=== PATIENT | female | born 1960 | race Caucasian/White ===

== ENCOUNTER 2016-12-20 08:13 | Outpatient (CLI) | payer OTHER ==
[2016-12-20 07:29] LABS: BILIRUBIN,URINE NEGATIVE (NEGATIVE); BLOOD, URINE NEGATIVE (NEGATIVE); CLARITY/URINE CLEAR (CLEAR); COLOR,URINE YELLOW (YELLOW); GLUCOSE,URINE NEGATIVE (NEGATIVE); KETONES,URINE NEGATIVE (NEGATIVE); LEUKOCYTE ESTERASE ,URINE NEGATIVE (NEGATIVE); NITRITE, URINE NEGATIVE (NEGATIVE); PH,URINE 5.5 (5.0-8.0); PROTEIN URINE NEGATIVE (NEGATIVE); UROBILINOGEN,URINE 0.2 (0.2-1.0)
[2016-12-20 07:31] LABS: BASOPHILS % (AUTO) 0.7 % (0.0-2.0); EOSINOPHILS # (AUTO) 0.4 K/uL (0.0-0.4); EOSINOPHILS % (AUTO) 5.3 % (0.0-4.0); HEMATOCRIT 40.4 % (36-48); HEMOGLOBIN 13.7 g/dL (12.0-16.0); LYMPHOCYTES # (AUTO) 1.7 K/uL (1.0-5.5); LYMPHOCYTES % (AUTO) 24.7 % (20.5-51.5); MEAN CORPUSCULAR HEMOGLOBIN 31 pg (27-31); MEAN CORPUSCULAR HGB CONC 34 % (32-36); MEAN CORPUSCULAR VOLUME 90 fL (79.0-98.0); MONOCYTES # (AUTO) 0.6 K/uL (0.0-1.0); MONOCYTES % (AUTO) 8.3 % (1.7-9.3); NEUTROPHILS # (AUTO) 4.3 K/uL (1.8-7.7); PLATELET COUNT (AUTO) 230 K/uL (130-430); RED BLOOD CELL COUNT(AUTO) 4.49 MIL/uL (4.2-6.2); RED CELL DISTRIBUTION WIDTH 14.5 % (9.0-15.0)
[2016-12-20 07:54] LABS: ALBUMIN 3.8 g/dL (3.4-4.8); BILIRUBIN,DIRECT 0.2 mg/dL (0.0-0.3); CREATININE 0.72 mg/dL (0.55-1.30); POTASSIUM 4.2 mmol/L (3.5-5.1); THYROID STIMULATING HORMONE 1.6 uIu/mL (0.34-4.82); TOTAL BILIRUBIN 0.3 mg/dL (0.0-1.0); TOTAL PROTEIN, SERUM 7.3 g/dL (6.4-8.3); URIC ACID 4.5 mg/dL (2.4-7.0)
[~2016-12-20 08:13] MED LIST: SERT25TA PO
[2016-12-20 08:43] LABS: IRON (SERUM) 80 mcg/dL (37-145); TOTAL IRON BIND. CAPACITY 406 ug/dL (250-450)
[2016-12-21 13:52] LABS: HEMOGLOBIN A1C 7.2 % (4.8-5.6)
[2016-12-24 12:07] LABS: VIT D,1, 25-DIHYDROXY 21.6 pg/mL (19.9-79.3)
== END 2016-12-20 19:21 | disposition home or self-care (01) ==
LOC: SLB 08:13
PROVIDERS: ATTEND Family Medicine
DX: Z00.00 Encounter for general adult medical examination without abnormal findings (principal)
CPT/HCPCS: 36415; 80053; 80061; 81003; 82248-TC; 82306; 82607; 83036; 83540-TC; 83550-TC; 84443-TC; 84550-TC; 85025

== ENCOUNTER 2016-12-31 06:28 | Outpatient (CLI) | payer OTHER | END 2016-12-31 21:29 | disposition home or self-care (01) | LOC: SUS 06:28 | PROVIDERS: ATTEND Family Medicine | DX: N28.1 Cyst of kidney, acquired (principal) | CPT/HCPCS: 76700-TC; 76830-TC; 76857 ==

== ENCOUNTER 2017-02-28 05:50 | Day surgery (SDC) | payer OTHER ==
[2017-02-26 15:35] LABS: BASOPHILS % (AUTO) 0.3 % (0.0-2.0); EOSINOPHILS # (AUTO) 0.4 K/uL (0.0-0.4); HEMATOCRIT 40.3 % (36-48); HEMOGLOBIN 13.5 g/dL (12.0-16.0); LYMPHOCYTES # (AUTO) 2.5 K/uL (1.0-5.5); LYMPHOCYTES % (AUTO) 33.8 % (20.5-51.5); MEAN CORPUSCULAR HEMOGLOBIN 30 pg (27-31); MEAN CORPUSCULAR HGB CONC 33 % (32-36); MEAN CORPUSCULAR VOLUME 91 fL (79.0-98.0); MONOCYTES # (AUTO) 0.6 K/uL (0.0-1.0); MONOCYTES % (AUTO) 8.4 % (1.7-9.3); NEUTROPHILS % (AUTO) 52.5 % (40.0-70.0); PLATELET COUNT (AUTO) 210 K/uL (130-430); RED BLOOD CELL COUNT(AUTO) 4.44 MIL/uL (4.2-6.2); RED CELL DISTRIBUTION WIDTH 13.4 % (9.0-15.0); WHITE BLOOD COUNT (AUTO) 7.5 K/uL (4.8-10.8)
[2017-02-26 16:41] LABS: BILIRUBIN,URINE NEGATIVE (NEGATIVE); BLOOD, URINE NEGATIVE (NEGATIVE); CLARITY/URINE CLEAR (CLEAR); COLOR,URINE YELLOW (YELLOW); GLUCOSE,URINE NEGATIVE (NEGATIVE); KETONES,URINE NEGATIVE (NEGATIVE); LEUKOCYTE ESTERASE ,URINE NEGATIVE (NEGATIVE); NITRITE, URINE NEGATIVE (NEGATIVE); PH,URINE 6.5 (5.0-8.0); PROTEIN URINE NEGATIVE (NEGATIVE); UROBILINOGEN,URINE 0.2 (0.2-1.0)
[~2017-02-28] VITALS: Ht 162.6 cm; Wt 89.8 kg
[2017-02-28] MEDS ORDERED: CEFAZOLIN 1 GM IVPB PREMIX 50 ML IV ONE ×2 (07:00→14:15)
[2017-02-28] MEDS ORDERED: POLYMYXIN 500,000/BACIT.10,000 UNITS in NS IRR 1 L IR ONE ×2 (07:41→10:39)
[2017-02-28] MEDS ORDERED: BUPIVACAINE /EPINEPHRINE/PF 0.5% 30 ML VIAL INJ ONE (09:15)
[2017-02-28] MEDS ORDERED: MIDAZOLAM HCL 5 MG/5 ML VIAL IVP ONE (09:15)
[2017-02-28] MEDS ORDERED: KETOROLAC TROMETHAMINE 30 MG VIAL IVP ONE (09:15)
[2017-02-28] MEDS ORDERED: SEVOFLURANE 15 MIN GAS INH ONE (09:15)
[2017-02-28] MEDS ORDERED: METHYLENE BLUE 1 ML AMPUL INJ ONE (09:15)
[2017-02-28] MEDS ORDERED: ROCURONIUM BROMIDE 10 MG/ML (ZEMURON) IV ONE (09:15)
[2017-02-28] MEDS ORDERED: LR 1,000 ML IV.SOLN IV ONE (09:15)
[2017-02-28] MEDS ORDERED: NS 1000 ML BAG IV ONE (09:15)
[2017-02-28] MEDS ORDERED: ONDANSETRON HCL 4 MG/2 ML VIAL IVP ONE ×2 (09:15→12:15)
[2017-02-28] MEDS ORDERED: fentaNYL CITRATE 250 MCG/5 ML AMP IV ONE (09:15)
[2017-02-28] MEDS ORDERED: LR 1,000 ML IV SCH (09:52)
[2017-02-28] MEDS ORDERED: MORPHINE 4 MG/ML INJ. SYRINGE IVP PRN ×2 (10:00)
[2017-02-28] MEDS ORDERED: METOCLOPRAMIDE HCL 10 MG/2 ML VIAL IVP PRN (10:00)
[2017-02-28] MEDS ORDERED: OXYCODONE/ACETAMINOPHEN 5-325 TABLET PO PRN ×2 (11:15)
[2017-02-28] MEDS ORDERED: HYDROcodone/ACETAMIN 5-325 MG TAB (NORCO/ VICODIN) PO PRN (11:15)
[2017-02-28] MEDS ORDERED: METOCLOPRAMIDE HCL 10 MG/2 ML VIAL ONE (11:40)
[2017-02-28] MEDS: MORPHINE 4 MG/ML INJ. SYRINGE IVP PRN ×2 (11:40→12:04)
[2017-02-28] MEDS ORDERED: MORPHINE 4 MG/ML INJ. SYRINGE ONE (11:41)
[2017-02-28] MEDS ORDERED: ONDANSETRON HCL 4 MG/2 ML VIAL ONE (12:08)
[2017-02-28] MEDS ORDERED: HYDROcodone/ACETAMIN 5-325 MG TAB (NORCO/ VICODIN) ONE (12:40)
[2017-02-28 12:48] VITALS: BP_SYST 96
== END 2017-02-28 15:50 | disposition home or self-care (01) ==
LOC: SMU 05:50 → SDS 05:50
PROVIDERS: ATTEND Specialist
DX: N39.3 Stress incontinence (female) (male) (principal); N81.10 Cystocele, unspecified; I10 Essential (primary) hypertension; N36.8 Other specified disorders of urethra; E11.9 Type 2 diabetes mellitus without complications; E78.00 Pure hypercholesterolemia, unspecified; Z79.84 Long term (current) use of oral hypoglycemic drugs; Z79.899 Other long term (current) drug therapy; K21.9 Gastro-esophageal reflux disease without esophagitis; M19.90 Unspecified osteoarthritis, unspecified site; F41.9 Anxiety disorder, unspecified; E66.9 Obesity, unspecified
CPT/HCPCS: 36415; 57240; 57288; 81003; 82962; 84702; 85025; 88302; 93005; C1771; J0690; J1885; J2250; J2270; J2405; J2765; J3010; J3490; J7030; J7120; Q9968; 88305

== ENCOUNTER 2017-07-03 05:46 | Outpatient (CLI) | payer OTHER ==
[2017-07-03 07:33] LABS: BILIRUBIN,URINE NEGATIVE (NEGATIVE); BLOOD, URINE NEGATIVE (NEGATIVE); CLARITY/URINE SL HAZY (CLEAR); COLOR,URINE YELLOW (YELLOW); GLUCOSE,URINE NEGATIVE (NEGATIVE); KETONES,URINE NEGATIVE (NEGATIVE); LEUKOCYTE ESTERASE ,URINE NEGATIVE (NEGATIVE); NITRITE, URINE NEGATIVE (NEGATIVE); PROTEIN URINE NEGATIVE (NEGATIVE); UROBILINOGEN,URINE 0.2 (0.2-1.0)
[2017-07-03 07:39] LABS: BASOPHILS % (AUTO) 0.4 % (0.0-2.0); EOSINOPHILS # (AUTO) 0.2 K/uL (0.0-0.4); EOSINOPHILS % (AUTO) 3.2 % (0.0-4.0); HEMATOCRIT 40.9 % (36-48); HEMOGLOBIN 13.6 g/dL (12.0-16.0); LYMPHOCYTES # (AUTO) 2.3 K/uL (1.0-5.5); MEAN CORPUSCULAR HEMOGLOBIN 29 pg (27-31); MEAN CORPUSCULAR HGB CONC 33 % (32-36); MEAN CORPUSCULAR VOLUME 87 fL (79.0-98.0); MONOCYTES # (AUTO) 0.6 K/uL (0.0-1.0); MONOCYTES % (AUTO) 9.2 % (1.7-9.3); NEUTROPHILS # (AUTO) 3.6 K/uL (1.8-7.7); NEUTROPHILS % (AUTO) 53.2 % (40.0-70.0); PLATELET COUNT (AUTO) 241 K/uL (130-430); RED BLOOD CELL COUNT(AUTO) 4.72 MIL/uL (4.2-6.2); RED CELL DISTRIBUTION WIDTH 15.7 % (9.0-15.0); WHITE BLOOD COUNT (AUTO) 6.7 K/uL (4.8-10.8)
[2017-07-03 08:01] LABS: ALBUMIN 3.6 g/dL (3.4-4.8); BILIRUBIN,DIRECT 0.1 mg/dL (0.0-0.3); CALCIUM 9.9 mg/dL (8.4-11.0); CREATININE 0.63 mg/dL (0.55-1.30); FREE T4 (FREE THYROXINE) 0.7 ng/dL (0.6-1.6); POTASSIUM 4.1 mmol/L (3.5-5.1); THYROID STIMULATING HORMONE 2.2 uIu/mL (0.34-4.82); TOTAL BILIRUBIN 0.3 mg/dL (0.0-1.0); URIC ACID 4.8 mg/dL (2.4-7.0)
[2017-07-03 08:06] LABS: TOTAL IRON BIND. CAPACITY 407 ug/dL (250-450)
[2017-07-04 15:52] LABS: HEMOGLOBIN A1C 6.9 % (4.8-5.6)
[2017-07-04 15:54] LABS: CREATININE, URINE 134.4 mg/dL; MICROALBUMIN URINE RANDOM 4.6 ug/ml (NOT ESTABLISHED); MICROALBUMIN/CREAT RATIO, UR 3.4 MG/G CRE (0.0-30.0)
== END 2017-07-03 20:47 | disposition home or self-care (01) ==
LOC: SLB 05:46
PROVIDERS: ATTEND Family Medicine
DX: I10 Essential (primary) hypertension (principal); E11.9 Type 2 diabetes mellitus without complications; E78.5 Hyperlipidemia, unspecified
CPT/HCPCS: 36415; 80053; 80061; 81003; 82043; 82248-TC; 82550-TC; 82570; 82607; 83036; 83540-TC; 83550-TC; 84439; 84443-TC; 84479; 84550-TC; 85025

== ENCOUNTER 2018-01-06 07:10 | Outpatient (CLI) | payer OTHER ==
[2018-01-06 07:48] LABS: BASOPHILS # (AUTO) 0.1 K/uL (0.0-0.2); EOSINOPHILS # (AUTO) 0.4 K/uL (0.0-0.4); EOSINOPHILS % (AUTO) 5.1 % (0.0-4.0); HEMATOCRIT 41.3 % (36-48); HEMOGLOBIN 13.6 g/dL (12.0-16.0); LYMPHOCYTES # (AUTO) 2.3 K/uL (1.0-5.5); MEAN CORPUSCULAR HEMOGLOBIN 30 pg (27-31); MEAN CORPUSCULAR HGB CONC 33 % (32-36); MEAN CORPUSCULAR VOLUME 89 fL (79.0-98.0); MONOCYTES # (AUTO) 0.7 K/uL (0.0-1.0); MONOCYTES % (AUTO) 9.5 % (1.7-9.3); NEUTROPHILS # (AUTO) 3.7 K/uL (1.8-7.7); NEUTROPHILS % (AUTO) 52.4 % (40.0-70.0); PLATELET COUNT (AUTO) 232 K/uL (130-430); RED BLOOD CELL COUNT(AUTO) 4.61 MIL/uL (4.2-6.2); WHITE BLOOD COUNT (AUTO) 7.2 K/uL (4.8-10.8)
[2018-01-06 08:42] LABS: ALBUMIN 3.6 g/dL (3.4-4.8); BILIRUBIN,DIRECT 0.1 mg/dL (0.0-0.3); CALCIUM 9.6 mg/dL (8.4-11.0); CREATININE 0.69 mg/dL (0.55-1.30); POTASSIUM 4.1 mmol/L (3.5-5.1); THYROID STIMULATING HORMONE 2.24 uIu/mL (0.34-4.82); TOTAL BILIRUBIN 0.3 mg/dL (0.0-1.0); URIC ACID 4.9 mg/dL (2.4-7.0)
[2018-01-06 09:39] LABS: BILIRUBIN,URINE NEGATIVE (NEGATIVE); BLOOD, URINE NEGATIVE (NEGATIVE); CLARITY/URINE CLEAR (CLEAR); COLOR,URINE YELLOW (YELLOW); GLUCOSE,URINE NEGATIVE (NEGATIVE); KETONES,URINE NEGATIVE (NEGATIVE); LEUKOCYTE ESTERASE ,URINE NEGATIVE (NEGATIVE); NITRITE, URINE NEGATIVE (NEGATIVE); PROTEIN URINE NEGATIVE (NEGATIVE); UROBILINOGEN,URINE 0.2 (0.2-1.0)
[2018-01-06 10:12] LABS: ERYTHROCYTE SEDIMENTATION RATE 12 MM/HR (0-20)
[2018-01-07 08:08] LABS: RA LATEX TURBID <10.0 IU/mL (0.0-13.9)
[2018-01-07 10:09] LABS: HEMOGLOBIN A1C 7.9 % (4.8-5.6)
== END 2018-01-06 20:41 | disposition home or self-care (01) ==
LOC: SLB 07:10
PROVIDERS: ATTEND Family Medicine
DX: E11.9 Type 2 diabetes mellitus without complications (principal); E78.5 Hyperlipidemia, unspecified; I10 Essential (primary) hypertension
CPT/HCPCS: 36415; 80053; 80061; 80076; 81003; 82607; 83036; 83540-TC; 83550-TC; 84443-TC; 84550-TC; 85025; 85651-TC; 86431

== ENCOUNTER 2018-02-28 06:20 | Outpatient (CLI) | payer OTHER ==
[2018-02-28 08:08] LABS: BILIRUBIN,URINE NEGATIVE (NEGATIVE); BLOOD, URINE NEGATIVE (NEGATIVE); CLARITY/URINE SL HAZY (CLEAR); COLOR,URINE YELLOW (YELLOW); GLUCOSE,URINE NEGATIVE (NEGATIVE); KETONES,URINE NEGATIVE (NEGATIVE); LEUKOCYTE ESTERASE ,URINE NEGATIVE (NEGATIVE); NITRITE, URINE NEGATIVE (NEGATIVE); PH,URINE 5.5 (5.0-8.0); PROTEIN URINE NEGATIVE (NEGATIVE); UROBILINOGEN,URINE 0.2 (0.2-1.0)
[2018-02-28 08:38] LABS: FREE T4 (FREE THYROXINE) 0.9 ng/dl (0.8-1.5); THYROID STIMULATING HORMONE 2.07 uIu/mL (0.36-3.74)
[2018-03-01 18:29] LABS: HEMOGLOBIN A1C 8.6 % (4.8-5.6)
== END 2018-02-28 21:49 | disposition home or self-care (01) ==
LOC: SLB 06:20
PROVIDERS: ATTEND Family Medicine
DX: R53.82 Chronic fatigue, unspecified (principal); I10 Essential (primary) hypertension; E11.9 Type 2 diabetes mellitus without complications; J45.909 Unspecified asthma, uncomplicated; E78.5 Hyperlipidemia, unspecified
CPT/HCPCS: 36415; 81003; 83036; 84439; 84443-TC; 84479

== ENCOUNTER 2018-10-30 06:45 | Outpatient (CLI) | payer OTHER ==
[2018-10-30 07:42] LABS: BASOPHILS % (AUTO) 0.7 % (0.0-2.0); EOSINOPHILS # (AUTO) 0.2 K/uL (0.0-0.4); EOSINOPHILS % (AUTO) 2.9 % (0.0-4.0); HEMATOCRIT 41.9 % (36-48); HEMOGLOBIN 13.9 g/dL (12.0-16.0); LYMPHOCYTES # (AUTO) 1.8 K/uL (1.0-5.5); LYMPHOCYTES % (AUTO) 30.4 % (20.5-51.5); MEAN CORPUSCULAR HEMOGLOBIN 30 pg (27-31); MEAN CORPUSCULAR HGB CONC 33 % (32-36); MEAN CORPUSCULAR VOLUME 91 fL (79.0-98.0); MONOCYTES # (AUTO) 0.6 K/uL (0.0-1.0); MONOCYTES % (AUTO) 9.4 % (1.7-9.3); NEUTROPHILS # (AUTO) 3.5 K/uL (1.8-7.7); NEUTROPHILS % (AUTO) 56.6 % (40.0-70.0); PLATELET COUNT (AUTO) 188 K/uL (130-430); RED BLOOD CELL COUNT(AUTO) 4.59 MIL/uL (4.2-6.2); WHITE BLOOD COUNT (AUTO) 6.1 K/uL (4.8-10.8)
[2018-10-30 08:06] LABS: TOTAL IRON BIND. CAPACITY 382 ug/dL (250-450)
[2018-10-30 08:09] LABS: ALBUMIN 3.3 g/dL (3.4-4.8); BILIRUBIN,DIRECT 0.1 mg/dL (0.0-0.3); CALCIUM 8.6 mg/dL (8.4-11.0); CREATININE 0.59 mg/dL (0.55-1.30); FREE T4 (FREE THYROXINE) 0.5 ng/dL (0.6-1.6); THYROID STIMULATING HORMONE 1.94 uIu/mL (0.34-4.82); TOTAL BILIRUBIN 0.3 mg/dL (0.0-1.0); URIC ACID 3.4 mg/dL (2.4-7.0)
[2018-10-30 08:15] LABS: BILIRUBIN,URINE NEGATIVE (NEGATIVE); BLOOD, URINE NEGATIVE (NEGATIVE); CLARITY/URINE SL HAZY (CLEAR); COLOR,URINE YELLOW (YELLOW); GLUCOSE,URINE 2+ (NEGATIVE); KETONES,URINE NEGATIVE (NEGATIVE); LEUKOCYTE ESTERASE ,URINE TRACE (NEGATIVE); NITRITE, URINE POSITIVE (NEGATIVE); PROTEIN URINE NEGATIVE (NEGATIVE); UROBILINOGEN,URINE 0.2 (0.2-1.0)
[2018-10-30 08:35] LABS: BACTERIA,URINE MANY /HPF (None Seen); MUCUS,URINE None Seen /LPF (None Seen); YEAST,URINE None Seen /HPF (None Seen)
[2018-10-30 09:23] LABS: ERYTHROCYTE SEDIMENTATION RATE 8 MM/HR (0-20)
[2018-10-31 08:11] LABS: RA LATEX TURBID <10.0 IU/mL (0.0-13.9)
[2018-10-31 14:50] LABS: HEMOGLOBIN A1C 9.6 % (4.8-5.6); T3 UPTAKE 23 % (24-39)
[2018-10-31 20:06] LABS: ANTI NUCLEAR AB WITH REFLEX Negative (Negative)
== END 2018-10-30 21:11 | disposition home or self-care (01) ==
LOC: SLB 06:45
PROVIDERS: ATTEND Family Medicine
DX: Z00.01 Encounter for general adult medical examination with abnormal findings (principal); E11.9 Type 2 diabetes mellitus without complications; E03.9 Hypothyroidism, unspecified; E78.5 Hyperlipidemia, unspecified
CPT/HCPCS: 36415; 80053; 80061; 81000-TC; 82248-TC; 82550-TC; 82607; 83036; 83540-TC; 83550-TC; 84439; 84443-TC; 84479; 84550-TC; 85025; 85651-TC; 86038; 86431

== ENCOUNTER 2019-03-17 09:39 | Outpatient (CLI) | payer OTHER | END 2019-03-17 20:37 | disposition home or self-care (01) | LOC: SRD 09:39 | PROVIDERS: ATTEND Family Medicine | DX: Z12.31 Encounter for screening mammogram for malignant neoplasm of breast (principal) | CPT/HCPCS: 77067 ==

== ENCOUNTER 2019-06-15 14:05 | Emergency (ER) | payer OTHER ==
[~2019-06-15] VITALS: Ht 162.6 cm; Wt 90.7 kg
[2019-06-15 14:16] VITALS: BP_SYST 124
--- NOTE | 2019-06-15 14:23 | NUR ---
Patient to ER bed 5 to gown for evaluation. Side rails up. Report given to Katina ALVAREZ.
--- NOTE | 2019-06-15 14:25 | NUR ---
Pt brought by self, A&Ox4, pt presents to ER with L calf pain and swelling x 3 days , denies trauma, denies fever, skin pink and warm, cap refill <3, VSS.
--- NOTE | 2019-06-15 14:30 | NUR ---
Dr Muñoz at bedside examining patient
--- NOTE | 2019-06-15 14:55 | NUR ---
Pt off the unit for US
[2019-06-15] MEDS ORDERED: KETOROLAC TROMETHAMINE 30 MG VIAL IM ONE (15:00)
--- NOTE | 2019-06-15 15:00 | NUR ---
Report from Katina RN, pt in Radiology for US
[2019-06-15 16:03] VITALS: BP_SYST 124
--- NOTE | 2019-06-15 16:03 | NUR ---
Patient given written and verbal discharge instructions and verbalizes understanding. ER MD discussed with patient the results and treatment provided. Patient in stable condition. ID arm band removed. Rx of Valium & Naroxyn given. Patient educated on pain management and to follow up with PMD. Pain Scale 0/10. Opportunity for questions provided and answered. Medication side effect fact sheet provided.
== END 2019-06-15 16:03 | disposition home or self-care (01) ==
LOC: SED 14:05
DX: S86.912A Strain of unspecified muscle(s) and tendon(s) at lower leg level, left leg, initial encounter (principal); E11.9 Type 2 diabetes mellitus without complications; M19.90 Unspecified osteoarthritis, unspecified site; X50.9XXA Other and unspecified overexertion or strenuous movements or postures, initial encounter; Y93.89 Activity, other specified; Y92.89 Other specified places as the place of occurrence of the external cause; Y99.8 Other external cause status
CPT/HCPCS: 73590; 93971; 96372; 99284; J1885

== ENCOUNTER 2019-07-11 08:14 | Emergency (ER) | payer OTHER ==
[~2019-07-11] VITALS: Ht 167.6 cm; Wt 81.6 kg
[2019-07-11 08:14] VITALS: BP_SYST 116
--- NOTE | 2019-07-11 08:14 | NUR ---
Placed in room 7 . Placed on media monitor, blood pressure machine and pulse oximeter. To gown for exam. Side rails up. Report given to KIM Cobb.
--- NOTE | 2019-07-11 08:16 | NUR ---
Patient arrived via POV, AAOx4, and ambulatory with steady gait. Patient c/c of chest pain. Onset was during the night and began on right side, moving to left sided and radiating upward to left side of neck. Patient states she has not had chest pain like this before and began to get concerned. Patient states pain is worse with deep inspiration and pain is worse with movement. Patient states recent productive cough, and pain with inspiration. Patient is a smoker, and states she has been having more frequent coughing. Will continue to follow up and monitor.
--- NOTE | 2019-07-11 08:25 | NUR ---
ER Dr. Serrano at bedside examining patient.
[2019-07-11 08:45] LABS: BASOPHILS # (AUTO) 0.1 K/uL (0.0-0.2); BASOPHILS % (AUTO) 0.6 % (0.0-2.0); EOSINOPHILS # (AUTO) 0.2 K/uL (0.0-0.4); EOSINOPHILS % (AUTO) 1.9 % (0.0-4.0); HEMATOCRIT 42.1 % (36-48); HEMOGLOBIN 14.5 g/dL (12.0-16.0); LYMPHOCYTES # (AUTO) 2.3 K/uL (1.0-5.5); LYMPHOCYTES % (AUTO) 24.3 % (20.5-51.5); MEAN CORPUSCULAR HEMOGLOBIN 32 pg (27-31); MEAN CORPUSCULAR HGB CONC 35 % (32-36); MEAN CORPUSCULAR VOLUME 93 fL (79.0-98.0); MONOCYTES # (AUTO) 0.9 K/uL (0.0-1.0); MONOCYTES % (AUTO) 9.5 % (1.7-9.3); NEUTROPHILS # (AUTO) 6.1 K/uL (1.8-7.7); NEUTROPHILS % (AUTO) 63.7 % (40.0-70.0); PLATELET COUNT (AUTO) 182 K/uL (130-430); RED BLOOD CELL COUNT(AUTO) 4.54 MIL/uL (4.2-6.2); RED CELL DISTRIBUTION WIDTH 14.1 % (9.0-15.0); WHITE BLOOD COUNT (AUTO) 9.5 K/uL (4.8-10.8)
[2019-07-11] MEDS ORDERED: ASPIRIN 81 MG TAB.CHEW PO ONE (08:45)
[2019-07-11 08:58] LABS: CALCIUM 8.9 mg/dL (8.4-11.0); CREATININE 0.6 mg/dL (0.55-1.30); POTASSIUM 3.9 mmol/L (3.5-5.1)
[2019-07-11 09:05] LABS: ALBUMIN 3.7 g/dL (3.4-4.8); TOTAL BILIRUBIN 0.4 mg/dL (0.0-1.0)
[2019-07-11 10:00] VITALS: BP_SYST 116
--- NOTE | 2019-07-11 10:00 | NUR ---
Patient given written and verbal discharge instructions and verbalizes understanding. ER MD discussed with patient the results and treatment provided. Patient in stable condition. ID arm band removed. IV catheter removed intact and dressing applied, no active bleeding. Rx of promethazine, motrin, prednisone given. Patient educated on pain management and to follow up with PMD. Pain Scale 0/10. Opportunity for questions provided and answered. Medication side effect fact sheet provided.
== END 2019-07-11 10:00 | disposition home or self-care (01) ==
LOC: SED 08:14
DX: J40 Bronchitis, not specified as acute or chronic (principal); R07.89 Other chest pain; E11.9 Type 2 diabetes mellitus without complications; M19.90 Unspecified osteoarthritis, unspecified site
CPT/HCPCS: 36415; 71045; 80053; 82550-TC; 83880; 84484; 85025; 85379; 93005; 99284

== ENCOUNTER 2019-09-30 10:01 | Outpatient (CLI) | payer OTHER | END 2019-10-01 13:41 | disposition home or self-care (01) | LOC: SRD 10:01 | PROVIDERS: ATTEND Family Medicine | DX: N63.0 Unspecified lump in unspecified breast (principal) | CPT/HCPCS: 77065 ==

== ENCOUNTER 2019-11-09 17:37 | Inpatient (IN) | payer OTHER ==
[~2019-11-09] VITALS: Ht 162.6 cm; Wt 87.5 kg
[2019-11-09 17:38] VITALS: BP_SYST 138
--- NOTE | 2019-11-09 17:41 | NUR ---
Patient triaged and placed in waiting room. VSS and patient appears in no acute distress at this time. Accompanied by daughter, awaiting available bed, and MD notified of need for MSE.
--- NOTE | 2019-11-09 18:09 | NUR ---
Patient to ER bed 08 to gown for evaluation. Side rails up. Report given to KIM Mathis
--- NOTE | 2019-11-09 18:10 | NUR ---
Patient is awake, alert, and oriented x4. Patient is complaining of SOB, chest and lower back pain that started after she got home. She denies nausea and vomiting.
[2019-11-09] MEDS ORDERED: NS 500 ML IV ONE (18:30)
[2019-11-09 18:59] LABS: BASOPHILS # (AUTO) 0.1 K/uL (0.0-0.2); BASOPHILS % (AUTO) 0.5 % (0.0-2.0); EOSINOPHILS % (AUTO) 0.3 % (0.0-4.0); HEMATOCRIT 44.3 % (36-48); HEMOGLOBIN 14.6 g/dL (12.0-16.0); LYMPHOCYTES # (AUTO) 1.1 K/uL (1.0-5.5); LYMPHOCYTES % (AUTO) 8.8 % (20.5-51.5); MEAN CORPUSCULAR HEMOGLOBIN 31 pg (27-31); MEAN CORPUSCULAR HGB CONC 33 % (32-36); MEAN CORPUSCULAR VOLUME 93 fL (79.0-98.0); MONOCYTES # (AUTO) 1.4 K/uL (0.0-1.0); MONOCYTES % (AUTO) 10.6 % (1.7-9.3); NEUTROPHILS # (AUTO) 10.3 K/uL (1.8-7.7); NEUTROPHILS % (AUTO) 79.8 % (40.0-70.0); PLATELET COUNT (AUTO) 191 K/uL (130-430); RED BLOOD CELL COUNT(AUTO) 4.75 MIL/uL (4.2-6.2); RED CELL DISTRIBUTION WIDTH 13.9 % (9.0-15.0); WHITE BLOOD COUNT (AUTO) 12.9 K/uL (4.8-10.8)
[2019-11-09 19:12] LABS: CALCIUM 8.8 mg/dL (8.4-11.0); CREATININE 0.66 mg/dL (0.55-1.30); POTASSIUM 3.9 mmol/L (3.5-5.1)
[2019-11-09 19:18] LABS: ALBUMIN 3.9 g/dL (3.4-4.8); TOTAL BILIRUBIN 0.5 mg/dL (0.0-1.0)
--- NOTE | 2019-11-09 19:20 | NUR ---
ER Dr. Dobbs at bedside examining patient.
[2019-11-09 19:21] LABS: PROTHROMBIN TIME 9.9 SECS (9.5-12.5)
[2019-11-09] MEDS ORDERED: KETOROLAC TROMETHAMINE 30 MG VIAL IVP ONE (19:30)
--- NOTE | 2019-11-09 19:39 | NUR ---
Medication was given, pt tolerated well. No adverse reaction, will continue to monitor.
--- NOTE | 2019-11-09 20:15 | NUR ---
Patient resting comfortably in bed. No acute distress, will continue to monitor.
--- NOTE | 2019-11-09 20:55 | NUR ---
Verbal orders received from Dr. Dobbs to administer Aspirin 162mg PO. Medication was administered, pt tolerated well.
[2019-11-09] MEDS ORDERED: ASPIRIN 81 MG TAB.CHEW ONE (21:10)
--- NOTE | 2019-11-09 21:10 | NUR ---
[place] grewal in ED - 11/09/19 at 2151 by [email or web address] Verbal orders received from Dr. Dobbs to administer Aspirin 162mg PO. Medication was administered, pt tolerated well.
--- NOTE | 2019-11-09 22:26 | NUR ---
Patient unable to give medication list. Per patient, she will ask her daughter to send her a text of the list because daughter went home.
[2019-11-09 22:33] LABS: BILIRUBIN,URINE NEGATIVE (NEGATIVE); BLOOD, URINE NEGATIVE (NEGATIVE); CLARITY/URINE CLEAR (CLEAR); COLOR,URINE YELLOW (YELLOW); GLUCOSE,URINE 3+ (NEGATIVE); KETONES,URINE 1+ (NEGATIVE); LEUKOCYTE ESTERASE ,URINE NEGATIVE (NEGATIVE); NITRITE, URINE NEGATIVE (NEGATIVE); PROTEIN URINE NEGATIVE (NEGATIVE); UROBILINOGEN,URINE 0.2 (0.2-1.0)
--- NOTE | 2019-11-09 23:02 | NUR ---
Patient will be admitted to care of Dr. Garza. Admitted to Telemetry unit. Will go to room 117 B. Belongings list completed. Complete and up to date summary report printed. SBAR report to be given at bedside with opportunity for questions.
--- NOTE | 2019-11-09 23:10 | NUR ---
ADMISSION: The patient, PATTI GREGORY, 59 y/o, F admitted by RUT BOTELLO MD, WITH THE DIAGNOSIS OF CHEST PAIN, was given written information regarding hospital policies, unit procedures and contact persons. .
[2019-11-09 23:24] VITALS: BP_SYST 108
[2019-11-10] VITALS: BP_SYST 108
--- NOTE | 2019-11-10 00:31 | NUR ---
CONSULT: CONSULT CALLED FOR DR. SHEN I SPOKE WITH DANOBIA LITERATURE PROFESSOR #[id number] REASON FOR CONSULT: CHEST PAIN REQUESTING CONSULT: DR. BOTELLO ACCOUNT INSTALLATION SPECIALIST PHONE NUMBER: [phone]
[2019-11-10] MEDS: MORPHINE 2 MG/ML INJ. SYRINGE IVP PRN ×5 (01:22→21:39)
--- NOTE | 2019-11-10 01:22 | NUR ---
PAIN/VOIDED PATIENT VERBALIZED 8/10 CHEST PAIN. PRN PAIN MEDICATION GIVEN AT THIS TIME. NO SIGNS OF RESPIRATORY DISTRESS NOTED. BREATHING EVEN AND UNLABORED. PATIENT ASSISTED TO RESTROOM, AND SAFELY BACK TO BED. SAFETY PRECAUTIONS IN PLACE. REFUSED BED ALARM AT THIS TIME, PATIENT EDUCATED ON PURPOSE AND BENEFITS OF BED ALARM, PATIENT STILL REFUSED. WILL CONTINUE TO MONITOR AND REASSESS PATIENT
--- NOTE | 2019-11-10 02:12 | NUR ---
RN ROUNDS PATIENT ASLEEP AT THIS TIME. NO SIGNS OF RESPIRATORY DISTRESS AND DISCOMFORT NOTED. BREATHING EVEN AND UNLABORED. SAFETY PRECAUTIONS IN PLACE. WILL CONTINUE TO MONITOR PATIENT.
--- NOTE | 2019-11-10 04:35 | NUR ---
RN ROUNDS/VOIDED PATIENT ASSISTED TO BATHROOM AND SAFELY BACK TO BED. NO SIGNS OF RESPIRATORY DISTRESS AND DISCOMFORT NOTED. SAFETY PRECAUTIONS IN PLACE. WILL CONTINUE TO MONITOR.
[2019-11-10] MEDS: INSULIN REGULAR, HUMAN 100 UNITS/ML, 10 ML VIAL (humuLIN R) SUBCUT PRN ×4 (06:17→21:41)
--- NOTE | 2019-11-10 06:51 | NUR ---
CLOSING NOTES/BS 231 PATIENT AWAKE AT THIS TIME. NO SIGNS OF RESPIRATORY DISTRESS AND DISCOMFORT NOTED. BREATHING EVEN AND UNLABORED. HOB RAISED. BS CHECKED 231, 4 UNITS OF REGULAR INSULIN GIVEN. IV SITE, PATENCY NOTED. CALL LIGHT WITHIN REACH. BED LOCKED AND IN LOWEST POSITION. SAFETY PRECAUTIONS IN PLACE. ALL NEEDS MET THROUGHOUT THE SHIFT. WILL CONTINUE TO MONITOR UNTIL ENDORSE TO ONCOMING SHIFT NURSE FOR CONTINUITY OF CARE.
--- NOTE | 2019-11-10 07:15 | NUR ---
OPENING NOTES PT AWAKE, ALERT, AND ORIENTED. NONLABORED BREATHING NOTED ON ROOM AIR. NO ACUTE DISTRESS NOTED. IV LINE INTACT AND PATENT, NO SIGNS OF INFILTRATION NOTED. PT DENIES PAIN AT THIS TIME. BED LOCKED AND IN LOWEST POSITION. HOB ELEVATED. ALL NEEDS MET. CALL LIGHT IN REACH. FALL AND ASPIRATION PRECAUTIONS IN PLACE. CONTINUE TO MONITOR.
[2019-11-10 08:00] VITALS: BP_SYST 121
[2019-11-10] MEDS ORDERED: SERTRALINE HCL 50 MG TABLET PO SCH (09:15)
[2019-11-10] MEDS ORDERED: ATOR20TA64 PO (09:21)
[2019-11-10] MEDS ORDERED: PANT20TA2 PO (09:21)
[2019-11-10] MEDS ORDERED: SERT100T PO (09:21)
[2019-11-10] MEDS ORDERED: LISI10TA5 PO (09:21)
[2019-11-10] MEDS: ASPIRIN 325 MG TABLET PO SCH (09:26)
--- NOTE | 2019-11-10 09:26 | NUR ---
ROUTINE MEDS ADMINISTERED ORDERED PER MD, EDUCATION GIVEN, TOLERATED WELL. NO ACUTE DISTRESS NOTED. ALL NEEDS MET. CALL LIGHT IN REACH. CONTINUE TO MONITOR.
[2019-11-10] MEDS ORDERED: SERTRALINE HCL 50 MG TABLET PO ONE (09:30)
[2019-11-10] MEDS ORDERED: PANTOPRAZOLE SODIUM 40 MG TAB PO ONE ×2 (09:30→11:15)
[2019-11-10 10:09] LABS: THYROID STIMULATING HORMONE 2.17 uIu/mL (0.36-3.74)
[2019-11-10] MEDS: metFORMIN HCL 500 MG TABLET PO SCH ×2 (11:14→16:58)
--- NOTE | 2019-11-10 11:14 | NUR ---
ROUTINE MEDS ROUTINE MEDS ADMINISTERED ORDERED PER MD, EDUCATION GIVEN, TOLERATED WELL. NO ACUTE DISTRESS NOTED. ALL NEEDS MET. CALL LIGHT IN REACH. CONTINUE TO MONITOR.
[2019-11-10] MEDS ORDERED: metFORMIN HCL 500 MG TABLET PO ONE (11:15)
[2019-11-10] MEDS ORDERED: LISINOPRIL 10 MG TABLET (PRINIVIL) PO ONE (11:15)
[2019-11-10] MEDS: LISINOPRIL 10 MG TABLET (PRINIVIL) PO SCH (11:15)
[2019-11-10 12:00] VITALS: BP_SYST 115
[2019-11-10] MEDS ORDERED: IOHEXOL 350 mgI/mL, 150 ML INFUS..BTL IV ONE (12:00)
--- NOTE | 2019-11-10 12:49 | NUR ---
CONSENT FOR CT ANGIOGRAM CONSENT FOR CT ANGIOGRAM SIGNED BY PATIENT. 20 G IV INSERTED FOR PROCEDURE ON RIGHT FOREARM, IV LINE INTACT AND PATENT, NO SIGNS OF INFILTRATION NOTED. ALL NEEDS MET CALL LIGHT IN REACH.
--- NOTE | 2019-11-10 13:15 | NUR ---
OFF THE FLOOR. PT TAKEN OFF FLOOR FOR CT ANGIOGRAM.
--- NOTE | 2019-11-10 13:46 | NUR ---
PT BACK ON FLOOR. PT STABLE. NO ACUTE DISTRESS NOTED. ALL NEEDS MET. CALL LIGHT IN REACH. CONTINUE TO MONITOR.
[2019-11-10 14:00] VITALS: BP_SYST 113
--- NOTE | 2019-11-10 15:00 | NUR ---
ROUNDS PT RESTING. CHEST RISE AND FALL NOTED. NONLABORED BREATHING NOTED ON ROOM AIR. NO ACUTE DISTRESS NOTED. ALL NEEDS MET. CALL LIGHT IN REACH. CONTINUE TO MONITOR.
[2019-11-10 16:00] VITALS: BP_SYST 114
--- NOTE | 2019-11-10 16:58 | NUR ---
ACCUCHECK DONE. EDUCATION GIVEN, TOLERATED WELL. RESULT 222MG/DL. INSULIN COVERAGE ADMINISTERED ORDERED PER MD, EDUCATION GIVEN, TOLERATED WELL. ALL NEEDS MET. CALL LIGHT IN REACH. CONTINUE TO MONITOR.
--- NOTE | 2019-11-10 18:45 | NUR ---
CLOSING NOTES PT AWAKE, ALERT, AND ORIENTED. PT DENIES PAIN AT THIS TIME. IV LINE INTACT AND PATENT, NO SIGNS OF INFILTRATION NOTED. NO ACUTE DISTRESS NOTED. BED LOCKED AND IN LOWEST POSITION. ALL NEEDS MET. CALL LIGHT IN REACH. FALL AND ASPIRATION PRECAUTIONS IN PLACE. WILL ENDORSE TO NOC NURSE.
--- NOTE | 2019-11-10 19:10 | NUR ---
OPENING NOTES PATIENT AWAKE A0X4. NO SIGNS OF RESPIRATORY DISTRESS AND DISCOMFORT NOTED. DENIES PAIN AND DISCOMFORT AT THIS TIME. IV SITE, PATENCY NOTED. CALL LIGHT WITH IN REACH. BED LOCKED AND IN LOWEST POSITION. REFUSED BED ALARM, PATIENT RE EDUCATED ON PURPOSE AND BENEFITS OF BED ALARM, PATIENT STILL REFUSED. OTHER SAFETY PRECAUTIONS IN PLACE. WILL CONTINUE TO MONITOR PATIENT
[2019-11-10 20:00] VITALS: BP_SYST 110
--- NOTE | 2019-11-10 21:38 | NUR ---
MED PASS/ BS CHECKED 220 MEDICATIONS GIVEN AT THIS TIME, BS CHECKED 4UNITS OF REGULAR INSULIN GIVEN, PATIENT TOLERATED WELL. PATIENT VERBALIZED 8/10 CHEST PAIN. PRN PAIN MEDICATION GIVEN AT THIS TIME, WILL RE ASSESS. PATIENT HAS NO SIGNS OF RESPIRATORY DISTRESS NOTED. SAFETY PRECAUTIONS IN PLACE. WILL CONTINUE TO MONITOR
[2019-11-11] VITALS (11 sets, daily range): BP systolic 84–125
[2019-11-11] MEDS: MORPHINE 2 MG/ML INJ. SYRINGE IVP PRN ×2 (06:21→10:54)
[2019-11-11] MEDS: INSULIN REGULAR, HUMAN 100 UNITS/ML, 10 ML VIAL (humuLIN R) SUBCUT PRN ×2 (06:30→11:45)
--- NOTE | 2019-11-11 06:45 | NUR ---
CLOSING NOTES/BS 196 PATIENT AWAKE AT THIS TIME. NO SIGNS OF RESPIRATORY DISTRESS AND DISCOMFORT NOTED. BREATHING EVEN AND UNLABORED. HOB RAISED. BS CHECKED 196, 2 UNITS OF REGULAR INSULIN GIVEN. IV SITE, PATENCY NOTED. CALL LIGHT WITHIN REACH. BED LOCKED AND IN LOWEST POSITION. SAFETY PRECAUTIONS IN PLACE. NEEDS ATTENDED. ALL NEEDS MET THROUGHOUT THE SHIFT. WILL CONTINUE TO MONITOR UNTIL ENDORSE TO ONCOMING SHIFT NURSE FOR CONTINUITY OF CARE.
--- NOTE | 2019-11-11 07:05 | NUR ---
OPENING NOTES PATIENT AWAKE AND ALERT AND ORIENTED. NO SIGNS OF RESPIRATORY DISTRESS NOTED. PT DENIES PAIN AT THIS TIME. IV SITE INTACT AND PATENT, NO SIGNS OF INFILTRATION NOTED. NO ACUTE DISTRESS NOTED. ALL NEEDS MET. CALL LIGHT IN REACH. FALL AND ASPIRATION PRECAUTIONS IN PLACE. CONTINUE TO MONITOR.
--- NOTE | 2019-11-11 07:10 | NUR ---
CRITICAL LAB RECEIVED CRITICAL LAB OF TROPONIN 0.948 AND VERBALIZED PT'S INCREASED HEART RATE AND PAIN. PAGED DR. BOTELLO AND DR. SHEN, RECEIVED ORDERS. VERIFIED AND CARRIED OUT.
[2019-11-11] MEDS: metFORMIN HCL 500 MG TABLET PO SCH (08:00)
[2019-11-11] MEDS ORDERED: METOPROLOL TARTRATE 25 MG TABLET PO ONE (08:00)
[2019-11-11] MEDS ORDERED: ENOXAPARIN SODIUM 100 MG/ML SYRINGE SUBCUT ONE (08:00)
[2019-11-11] MEDS: ASPIRIN 325 MG TABLET PO SCH (08:06)
[2019-11-11] MEDS: LISINOPRIL 10 MG TABLET (PRINIVIL) PO SCH (08:06)
[2019-11-11] MEDS ORDERED: PANTOPRAZOLE SODIUM 40 MG TAB PO SCH (09:00)
[2019-11-11] MEDS ORDERED: SERTRALINE HCL 50 MG TABLET PO SCH (09:00)
[2019-11-11] MEDS ORDERED: ATORVASTATIN 20 MG TABLET PO SCH (09:00)
--- NOTE | 2019-11-11 09:00 | NUR ---
SEEN BY DR. SHEN AT BEDSIDE
[2019-11-11] MEDS ORDERED: DILTIAZEM HCL 25 MG/5 ML VIAL IVP ONE ×2 (09:15→09:30)
[2019-11-11] MEDS ORDERED: DILTIAZEM HCL 125 MG in D5W 100 ML IV SCH (09:30)
--- NOTE | 2019-11-11 10:10 | NUR ---
Transfer to ICU 9 Received pt AAOx4, able to verbalize needs. Pt states she has headache and chest pain 05/02. Placed pt on 2L O2 NC, O2 sat 90%. Per report, pt received cardizem, lopressor, and aspirin prior to transfer. Situated pt to room and call light.
--- NOTE | 2019-11-11 10:10 | NUR ---
PT TRANSFERRED TO ICU. GAVE REPORT TO KIM DOWELL FROM ICU INCLUDING PT CONVERTING TO AFIB, ENDORSED CARDIZEM TITRATION DRIP, AND CRITICAL LAB RESULTS.
[2019-11-11 10:49] LABS: BASOPHILS # (AUTO) 0.1 K/uL (0.0-0.2); BASOPHILS % (AUTO) 0.9 % (0.0-2.0); EOSINOPHILS # (AUTO) 0.3 K/uL (0.0-0.4); EOSINOPHILS % (AUTO) 3.4 % (0.0-4.0); HEMATOCRIT 42.1 % (36-48); LYMPHOCYTES # (AUTO) 2.3 K/uL (1.0-5.5); LYMPHOCYTES % (AUTO) 26.1 % (20.5-51.5); MEAN CORPUSCULAR HEMOGLOBIN 31 pg (27-31); MEAN CORPUSCULAR HGB CONC 33 % (32-36); MEAN CORPUSCULAR VOLUME 94 fL (79.0-98.0); MONOCYTES # (AUTO) 0.9 K/uL (0.0-1.0); MONOCYTES % (AUTO) 9.8 % (1.7-9.3); NEUTROPHILS # (AUTO) 5.2 K/uL (1.8-7.7); NEUTROPHILS % (AUTO) 59.8 % (40.0-70.0); PLATELET COUNT (AUTO) 179 K/uL (130-430); WHITE BLOOD COUNT (AUTO) 8.8 K/uL (4.8-10.8)
--- NOTE | 2019-11-11 11:02 | NUR ---
DC Planning: Received transfer order to transfer pt to other [facility] for cardiac angiogram. Per JUDAH Dumont ICU : the pt agreed with the transfer to either [place] or [facility]. >> Notified GENOVEVA Duenas care manager at [facility] , stated no authorization is needed for the [facility] but will need auth for ambulance transportation. She transferred me to another nurse care manager to help with the authorization. She did not answer the phone. -- cm to f/u. >> Faxing the referral package and order to produce department supervisor/Jeffrey Nesbitt fax# [phone], tel# [phone]. >> At this time the pt is in ICU for Cardizem drip dt new onset afib. CM requesting JUDAH Dumont to get the ok from MD when pt is stable and/or will need the iv during transfer. Addendum: 11/11/19 at 1156 by August Baumann RN >> Notified dr. Bobby to call dr Medina /Jeffrey Tellez for peer to peer. The md will call me back for further instruction.
[2019-11-11 11:13] LABS: CALCIUM 9.2 mg/dL (8.4-11.0); CREATININE 0.59 mg/dL (0.55-1.30); POTASSIUM 3.7 mmol/L (3.5-5.1)
[2019-11-11] MEDS ORDERED: NITROGLYCERIN 0.4 MG TAB.SUBL SL PRN (11:15)
[2019-11-11] MEDS ORDERED: ACETAMINOPHEN 325 MG TABLET PO PRN (11:15)
--- NOTE | 2019-11-11 12:06 | NUR ---
Pt noted with multiple pauses while on cardizem drip 10 mg/hr. Rate decreased to 5 mg/hr, still noted some pauses. Pt also complain of dizziness and "blackout for 1 second" during the time of pauses. Dr. Bobby paged.
--- NOTE | 2019-11-11 12:30 | NUR ---
Dr. Castillo returned call and made aware about pt's situation and pauses. Dr. Bobby states to keep pt on Cardizem drip 5 mg/hr. Will continue to monitor. Pt and daughter educated and informed of situation and states understanding.
--- NOTE | 2019-11-11 12:59 | NUR ---
Spoke with Dr. Diamante GIPSON stated that Dr. Isaac is accepting the patient at [facility] today, pending transportation. Bonding Machine Operator Nannette to call with transportation information for today. Discontinue Cardizem drip prior to discharge today, but keep the patient on it for now - MD made aware of last two troponin levels and heart rate and rhythm. Please inform Dr. Garza prior to transfer.
--- NOTE | 2019-11-11 13:02 | NUR ---
DC Planning: Per susanne Bobby, he spoke with dr. Medina and the pt is accepted for the transfer. -- CM phoned /LVM to [facility]/house sup. asking for bed assignment vs going straight to denture laboratory technician. -- cm to f/u. >> Transferring process: per dr. Bobby: the pt is stable for transfer and may stop Cardizem IV drip for transport and to resume the medication once the pt arrives at [place] under dr. Medina reevaluation. -- JUDAH Dumont made aware. Addendum: 11/11/19 at 1458 by August Baumann RN >> f/U with Laz at [facility], no bed assigned yet. He requested dr. Garza to do peer to peer with hospitalist/dr. Maira Knox # [phone]. >> Per nurse WENCESLAO Hernandez/David TOMAS dept: the transportation cost is under [place] coverage. She advised to give out her phone number for authorization and to call any contracted ambulance for the transfer need. Addendum: 11/11/19 at 1539 by August Baumann RN >> Booked with [facility] tel # [phone], ALS transfer, case picker time at 4 pm. -- JUDAH Dumont made aware.
--- NOTE | 2019-11-11 15:39 | NUR ---
Received call from Dr. Bobby and updated on pt's status. Dr. Bobby states pt is okay to be on telemetry status and cardizem drip can be discontinued.
--- NOTE | 2019-11-11 15:43 | NUR ---
[facility]: per [place] sup / [facility], assigned Tele bed # 236B , RN to report # [phone]. Dr Knox accepted the pt under Tele status. -- JUDAH Dumont made aware.
--- NOTE | 2019-11-11 15:49 | NUR ---
Important phone #: David Duenas UR manager product support # [phone] Jailyn, nurse binder caser, UR dept # [phone], helps facilitate the transfer and ambulance may call her for auth. verification. [facility], dept main line # [phone], fax# [phone] Padmini, binder caser at [facility] cell # [phone] [facility]/[employer]/[facility] # [phone], fax # [phone].
--- NOTE | 2019-11-11 16:40 | NUR ---
PT TRANSFERRED Report given to Saray at [facility]. Patient is going to room 236B. Transfer packet with Transfer Orders and Medication Reconciliation form given to EMT with report. Exitcare provided. [facility] ID band removed, replaced with ID band with pt's name and . IV catheter left in place. All belongings sent with patient. Patient left floor via gurney and continuous O2 2L NC escorted by EMT in no distress.
[2019-11-12 15:03] LABS: HEMOGLOBIN A1C 10.5 % (4.8-5.6)
== END 2019-11-11 16:40 | disposition short-term general hospital (02) | DRG 282 ==
LOC: SED 17:37 → STU 22:47 → SIC 11-11 10:10 → STU 11-11 14:50 → SIC 11-11 14:56
PROVIDERS: ADMIT Internal Medicine Hospice and Palliative Medicine; ATTEND Internal Medicine Hospice and Palliative Medicine
DX: I21.4 Non-ST elevation (NSTEMI) myocardial infarction (principal); E11.9 Type 2 diabetes mellitus without complications; E78.5 Hyperlipidemia, unspecified; F17.210 Nicotine dependence, cigarettes, uncomplicated; M19.90 Unspecified osteoarthritis, unspecified site; I50.9 Heart failure, unspecified; I11.0 Hypertensive heart disease with heart failure; Z60.2 Problems related to living alone; I48.91 Unspecified atrial fibrillation; Z79.899 Other long term (current) drug therapy; Z82.49 Family history of ischemic heart disease and other diseases of the circulatory system
CPT/HCPCS: 36415; 36600; 71045; 71275; 80048; 80053; 80061; 81003; 82607; 82803-TC; 82962; 83036; 83605; 83880; 84443-TC; 84484; 85025; 85379; 85610-TC; 85730-TC; 86710; 87040-TC; 87086; 93005; 93306; 96361; 96374; 99285; G0378; J1650; J1885; J2270; J3490; J7060; Q9967

== ENCOUNTER 2019-11-18 04:55 | Inpatient (IN) | payer OTHER ==
[~2019-11-18] VITALS: Ht 162.6 cm; Wt 84.4 kg
[~2019-11-18 04:55] MED LIST changes: +ATOR20TA64 PO; +LISI10TA5 PO; +PANT20TA2 PO; +SERT100T PO
[2019-11-18 05:00] VITALS: BP_SYST 136
[2019-11-18] MEDS ORDERED: ASPIRIN 81 MG TAB.CHEW PO ONE (05:30)
[2019-11-18 06:17] LABS: HEMATOCRIT 42.3 % (36-48); HEMOGLOBIN 14.2 g/dL (12.0-16.0); MEAN CORPUSCULAR HEMOGLOBIN 31 pg (27-31); MEAN CORPUSCULAR HGB CONC 34 % (32-36); MEAN CORPUSCULAR VOLUME 93 fL (79.0-98.0); PLATELET COUNT (AUTO) 340 K/uL (130-430); RED BLOOD CELL COUNT(AUTO) 4.57 MIL/uL (4.2-6.2); RED CELL DISTRIBUTION WIDTH 13.7 % (9.0-15.0); WHITE BLOOD COUNT (AUTO) 14.8 K/uL (4.8-10.8)
[2019-11-18 06:23] LABS: CALCIUM 8.9 mg/dL (8.4-11.0); CREATININE 0.65 mg/dL (0.55-1.30); POTASSIUM 3.7 mmol/L (3.5-5.1)
[2019-11-18 06:28] LABS: ALBUMIN 3.2 g/dL (3.4-4.8); TOTAL BILIRUBIN 0.6 mg/dL (0.0-1.0)
[2019-11-18 06:33] LABS: INR 1.1 (0.8-1.2); PROTHROMBIN TIME 10.8 SECS (9.5-12.5)
[2019-11-18] MEDS ORDERED: ONDANSETRON HCL 4 MG/2 ML VIAL IVP ONE (07:00)
[2019-11-18 07:19] LABS: BAND % (MANUAL) 5 % (0-6)
[2019-11-18 07:20] LABS: BASOPHILS % (MANUAL) 0 % (0-2); EOSINOPHILS % (MANUAL) 0 % (0-7); LYMPHOCYTES % (MANUAL) 9 % (20-46); MONOCYTES % (MANUAL) 5 % (0-11)
[2019-11-18] MEDS ORDERED: IOHEXOL 350 mgI/mL, 150 ML INFUS..BTL IV ONE (08:27)
[2019-11-18] MEDS ORDERED: POTASSIUM CHLORIDE 20 MEQ/PKT PACKET PO ONE (09:30)
[2019-11-18] MEDS ORDERED: MORPHINE 4 MG/ML INJ. SYRINGE IVP ONE (09:45)
[2019-11-18] MEDS ORDERED: DIPHENHYDRAMINE INJ 50 MG/ML VIAL IVP ONE (09:45)
[2019-11-18] MEDS ORDERED: MORPHINE 2 MG/ML INJ. SYRINGE IVP PRN ×2 (10:15→14:00)
[2019-11-18 12:29] VITALS: BP_SYST 124
[2019-11-18] MEDS ORDERED: NON-FORMULARY MEDICATION (Pantoprazole (Protonix) 40 MG) PO SCH (14:00)
[2019-11-18] MEDS: SERTRALINE HCL 50 MG TABLET PO SCH (14:00)
[2019-11-18] MEDS ORDERED: INSULIN ASPART 100 UNITS/ML, 10 ML VIAL (NovoLOG) SUBCUT PRN (14:00)
[2019-11-18] MEDS: LISINOPRIL 10 MG TABLET (PRINIVIL) PO SCH (14:00)
[2019-11-18] MEDS ORDERED: PANTOPRAZOLE SODIUM 40 MG TAB PO ONE (14:15)
[2019-11-18] MEDS ORDERED: LISINOPRIL 10 MG TABLET (PRINIVIL) PO ONE (16:30)
[2019-11-18] MEDS ORDERED: SERTRALINE HCL 50 MG TABLET PO ONE (16:30)
[2019-11-18 17:00] VITALS: BP_SYST 110
[2019-11-18] MEDS: INSULIN LISPRO SLIDING SCALE 100 UNITS/ML VIAL (humaLOG) SUBCUT PRN ×2 (17:55→21:27)
[2019-11-18] MEDS: MORPHINE 4 MG/ML INJ. SYRINGE IVP PRN ×2 (17:56→23:03)
[2019-11-18 20:15] VITALS: BP_SYST 112
[2019-11-18] MEDS: metFORMIN HCL 500 MG TABLET PO SCH (21:20)
[2019-11-18 23:30] VITALS: BP_SYST 127
[2019-11-19] MEDS: MORPHINE 4 MG/ML INJ. SYRINGE IVP PRN ×4 (03:08→16:44)
[2019-11-19] MEDS: INSULIN LISPRO SLIDING SCALE 100 UNITS/ML VIAL (humaLOG) SUBCUT PRN ×2 (07:38→12:26)
[2019-11-19 07:52] LABS: BASOPHILS # (AUTO) 0.1 K/uL (0.0-0.2); BASOPHILS % (AUTO) 0.8 % (0.0-2.0); EOSINOPHILS % (AUTO) 0.3 % (0.0-4.0); HEMATOCRIT 41.3 % (36-48); HEMOGLOBIN 13.4 g/dL (12.0-16.0); LYMPHOCYTES # (AUTO) 1.7 K/uL (1.0-5.5); LYMPHOCYTES % (AUTO) 10.2 % (20.5-51.5); MEAN CORPUSCULAR HEMOGLOBIN 31 pg (27-31); MEAN CORPUSCULAR HGB CONC 33 % (32-36); MEAN CORPUSCULAR VOLUME 94 fL (79.0-98.0); MONOCYTES % (AUTO) 11.8 % (1.7-9.3); NEUTROPHILS # (AUTO) 12.8 K/uL (1.8-7.7); PLATELET COUNT (AUTO) 327 K/uL (130-430); RED CELL DISTRIBUTION WIDTH 14.1 % (9.0-15.0); WHITE BLOOD COUNT (AUTO) 16.7 K/uL (4.8-10.8)
[2019-11-19] MEDS: metFORMIN HCL 500 MG TABLET PO SCH (07:53)
[2019-11-19 08:04] LABS: NEUTROPHILS % (AUTO) 76.9 % (40.0-70.0)
[2019-11-19] MEDS ORDERED: PANTOPRAZOLE SODIUM 40 MG TAB PO SCH (09:00)
[2019-11-19] MEDS ORDERED: ATORVASTATIN 20 MG TABLET PO SCH (09:00)
[2019-11-19] MEDS: LISINOPRIL 10 MG TABLET (PRINIVIL) PO SCH (12:20)
[2019-11-19] MEDS: SERTRALINE HCL 50 MG TABLET PO SCH (12:20)
[2019-11-19 13:34] VITALS: BP_SYST 122
[2019-11-19 16:05] VITALS: BP_SYST 122
[2019-11-19 17:19] VITALS: BP_SYST 106
== END 2019-11-19 17:00 | disposition short-term general hospital (02) | DRG 315 ==
LOC: SED 04:55 → STU 09:54
PROVIDERS: ADMIT Family Medicine; ATTEND Family Medicine
DX: I31.3 Pericardial effusion (noninflammatory) (principal); J98.11 Atelectasis; E11.9 Type 2 diabetes mellitus without complications; E78.5 Hyperlipidemia, unspecified; F17.210 Nicotine dependence, cigarettes, uncomplicated; I25.10 Atherosclerotic heart disease of native coronary artery without angina pectoris; I48.91 Unspecified atrial fibrillation; I11.0 Hypertensive heart disease with heart failure; I50.9 Heart failure, unspecified; M19.90 Unspecified osteoarthritis, unspecified site; Z82.49 Family history of ischemic heart disease and other diseases of the circulatory system; Z79.899 Other long term (current) drug therapy
CPT/HCPCS: 36415; 71045; 71275; 80053; 82550-TC; 82962; 83880; 84484; 85007; 85025; 85027; 85379; 85610-TC; 87081; 93005; 93306; 96374; 96375; 99285; G0378; J1200; J2270; J2405; Q9967

== ENCOUNTER 2019-12-03 10:49 | Inpatient (IN) | payer OTHER ==
[~2019-12-03] VITALS: Ht 162.6 cm; Wt 81.6 kg
--- NOTE | 2019-12-03 11:10 | NUR ---
PATIENT TO ER #6, STAT EKG, MONITOR, SAO2, ABP, IV START #22 RIGHT WRIST
[2019-12-03] MEDS ORDERED: NACL 0.9% 1,000 ML IV ONE (11:15)
[2019-12-03] MEDS ORDERED: MORPHINE 4 MG/ML INJ. SYRINGE IVP ONE ×2 (11:15→15:00)
[2019-12-03] MEDS ORDERED: ASPIRIN 325 MG TABLET PO ONE (11:15)
--- NOTE | 2019-12-03 11:20 | NUR ---
PT ARRIVES FROM HOME W/ C/O OF CP 03/02. EKG DONE AND GIVEN TO MD. SPECIAL TECHNICAL OPERATIONS OFFICER PLACED. WILL CONTIUE TO MONITOR
[2019-12-03] MEDS ORDERED: ASPI-989 PO (11:33)
[2019-12-03] MEDS ORDERED: [UNRECOGNIZED DRUG - OTHER] PO (11:33)
[2019-12-03 11:34] VITALS: BP_SYST 102
--- NOTE | 2019-12-03 11:45 | NUR ---
# 20 gauge angiocath placed to lfa. Use of asceptic technique. Opsite placed over site. Blood return noted. Blood for lab drawn from site. Flushed with 10 cc of normal saline. No evidence of infiltration noted. Patient tolerated well.
--- NOTE | 2019-12-03 11:58 | NUR ---
MEDICATED THE PT W/ MOPRHINE AND ASPIRIN PER MD ORDER.
--- NOTE | 2019-12-03 12:00 | NUR ---
FLU SWAB COLLECTED AND SENT TO LAB
[2019-12-03 12:01] LABS: BASOPHILS % (AUTO) 0.3 % (0.0-2.0); EOSINOPHILS % (AUTO) 0.3 % (0.0-4.0); HEMATOCRIT 40.9 % (36-48); HEMOGLOBIN 13.3 g/dL (12.0-16.0); LYMPHOCYTES # (AUTO) 1.1 K/uL (1.0-5.5); LYMPHOCYTES % (AUTO) 7.6 % (20.5-51.5); MEAN CORPUSCULAR HEMOGLOBIN 30 pg (27-31); MEAN CORPUSCULAR HGB CONC 32 % (32-36); MEAN CORPUSCULAR VOLUME 93 fL (79.0-98.0); MONOCYTES # (AUTO) 1.4 K/uL (0.0-1.0); MONOCYTES % (AUTO) 9.6 % (1.7-9.3); NEUTROPHILS # (AUTO) 11.7 K/uL (1.8-7.7); NEUTROPHILS % (AUTO) 82.2 % (40.0-70.0); PLATELET COUNT (AUTO) 222 K/uL (130-430); RED BLOOD CELL COUNT(AUTO) 4.42 MIL/uL (4.2-6.2); RED CELL DISTRIBUTION WIDTH 14.2 % (9.0-15.0); WHITE BLOOD COUNT (AUTO) 14.3 K/uL (4.8-10.8)
[2019-12-03 12:37] LABS: ANION GAP 12 (5-15); CHLORIDE 99 mmol/L (98-107); CREATININE 0.67 mg/dL (0.55-1.30); GLUCOSE 178 mg/dL (70-99); POTASSIUM 3.9 mmol/L (3.5-5.1); SODIUM SERUM 136 mmol/L (136-145); UREA NITROGEN, BLOOD 15 mg/dL (8-21)
[2019-12-03 12:38] LABS: GFR AFRICAN AMERICAN 116 mL/min (>90)
[2019-12-03 12:45] LABS: ALANINE AMINOTRANSFERASE 50 U/L (12-78); ALBUMIN 3.2 g/dL (3.4-4.8); ASPARTATE AMINOTRANSFERASE 21 U/L (10-37); TOTAL BILIRUBIN 0.5 mg/dL (0.0-1.0)
[2019-12-03] MEDS ORDERED: IOHEXOL 350 mgI/mL, 150 ML INFUS..BTL IV ONE (13:21)
--- NOTE | 2019-12-03 14:00 | NUR ---
Patient transported to radiology via GURNEY, accompanied by BRONC BREAKER.
--- NOTE | 2019-12-03 14:02 | NUR ---
UA COLLECTED AND SENT TO LAB
--- NOTE | 2019-12-03 15:16 | NUR ---
report recieved from KIM Jesus
--- NOTE | 2019-12-03 15:20 | NUR ---
MEDICATED THE PT W/ MORHPINE PER MD ORDER. WILL REASSESS
--- NOTE | 2019-12-03 15:20 | NUR ---
REPORT GIVEN TO GARY ALVAREZ.
--- NOTE | 2019-12-03 15:45 | NUR ---
Medication reconciliation completed with information provided by PATIENT. Any prior medication reconciliation on file was reviewed and corrected.
[2019-12-03] MEDS ORDERED: PIPERACILLIN/TAZO 3.375 GM in NS 50 ML IV ONE (16:00)
[2019-12-03 16:02] LABS: BILIRUBIN,URINE NEGATIVE (NEGATIVE); BLOOD, URINE NEGATIVE (NEGATIVE); CLARITY/URINE CLEAR (CLEAR); COLOR,URINE YELLOW (YELLOW); GLUCOSE,URINE NEGATIVE (NEGATIVE); KETONES,URINE NEGATIVE (NEGATIVE); LEUKOCYTE ESTERASE ,URINE NEGATIVE (NEGATIVE); NITRITE, URINE NEGATIVE (NEGATIVE); PROTEIN URINE NEGATIVE (NEGATIVE); UROBILINOGEN,URINE 0.2 (0.2-1.0)
--- NOTE | 2019-12-03 16:09 | NUR ---
Blood cultures drawn, prior to administration of antibiotic.
--- NOTE | 2019-12-03 16:10 | NUR ---
Patient's code status is FULL CODE paperwork comPleted and placed in chart.
[2019-12-03] MEDS ORDERED: PIPERACILLIN/TAZOBACTAM 3.375 GM/VIAL (ZOSYN) IV ONE (16:28)
--- NOTE | 2019-12-03 17:47 | NUR ---
Patient will be admitted to care of DR. LANIER. Admitted to TELEMETRY unit. Will go to room 126. Belongings list completed. Complete and up to date summary report printed. SBAR report to be given at bedside with opportunity for questions.
--- NOTE | 2019-12-03 18:06 | NUR ---
ADMISSION NOTE Received patient from ER via vidya, received report from Roro ALVAREZ. Patient admitted with diagnosis of Chest pain . Patient oriented to hospital routine, call light, toileting and safety-patient verbalized understanding.
[2019-12-03] MEDS ORDERED: BISACODYL 10 MG/SUPPOSITORY RC ONE (18:45)
[2019-12-03 18:48] VITALS: BP_SYST 103
--- NOTE | 2019-12-03 19:10 | NUR ---
OPENING NOTES RECEIVE REPORT FROM MORNING SHIFT NURSE KIM BELTRAN. PATIENT AWAKE AOX4. NO SIGNS OF RESPIRATORY DISTRESS AND DISCOMFORT NOTED. DENIES PAIN AT THIS TIME. IV SITE, PATENCY NOTED. BED LOCKED AND IN LOWEST POSITIONED. REFUSED BED ALARM AT THIS TIME, PATIENT EDUCATED ON PURPOSE AND BENEFITS OF BED ALARM, PATIENT STILL REFUSED AT THIS TIME. WILL CONTINUE TO ENCOURAGE. CALL LIGHT WITHIN REACH, PATIENT EDUCATED TO USE CALL LIGHT WHEN ASSISTANCE IS NEEDED, PATIENT VERBALIZED UNDERSTANDING. OTHER SAFETY PRECAUTIONS IN PLACE. WILL CONTINUE TO MONITOR PATIENT.
[2019-12-03 20:00] VITALS: BP_SYST 98
[2019-12-03] MEDS: BISACODYL 5 MG TABLET.DR (DULCOLAX) PO SCH (20:57)
[2019-12-03] MEDS: SERTRALINE HCL 50 MG TABLET PO SCH (20:57)
[2019-12-03] MEDS: ATORVASTATIN 20 MG TABLET PO SCH (20:57)
[2019-12-03] MEDS: INSULIN REGULAR, HUMAN 100 UNITS/ML, 10 ML VIAL (humuLIN R) SUBCUT PRN (21:18)
[2019-12-03] MEDS: PIPERACILLIN/TAZO 4.5 GM in NS 100 ML IV SCH (21:20)
--- NOTE | 2019-12-03 21:20 | NUR ---
MED PASS/ BS 169 DUE MEDICATION GIVEN AT THIS TIME, PATIENT TOLERATED WELL. PATIENT WAS EDUCATED ON MEDICATIONS THAT WAS TAKEN, PATIENT VERBALIZED UNDERSTANDING. BS CHECKED 160, 2UNITS OF REGULAR INSULIN FOR COVERAGE WAS GIVEN. NO SIGNS OF RESPIRATORY DISTRESS NOTED. PRN DULCOLAX SUPPOSITORY GIVEN WELL PER MD ORDERED, PATIENT TOLERATED WELL. WILL MONITOR BOWEL MOVEMENT. SAFETY PRECAUTIONS IN PLACE. WILL CONTINUE TO MONITOR PATIENT.
[2019-12-03] MEDS ORDERED: PIPERACILLIN/TAZO 4.5 GM in NS 100 ML IV SCH ×4 (22:00)
[2019-12-03 23:02] VITALS: BP_SYST 108
[2019-12-03] MEDS: MORPHINE 4 MG/ML INJ. SYRINGE IVP PRN (23:08)
[2019-12-04] VITALS: BP_SYST 108
--- NOTE | 2019-12-04 00:15 | NUR ---
Pulmo Consultation Paged Reason for consultation: Pneumonia Was consult called: Yes Person who was notified: Tori Consulting Physician: Dr Hussein Barrel Header Barrel Header Specialty: Pulmonology Ordered By: Dr Vivian Sheffield
--- NOTE | 2019-12-04 00:21 | NUR ---
ID Consultation Paged Reason for consultation: Pneumonia Was consult called: Yes Person who was notified: Tori Consulting Physician: Dr Muñoz Refrigerator Crater Refrigerator Crater Specialty: Infectious Disease Ordered By: Dr Vivian Akers
--- NOTE | 2019-12-04 02:45 | NUR ---
VOIDED PATIENT AWAKE, ASSISTED TO BATHROOM AND ASSISTED SAFELY BACK TO BED. PATIENT VERBALIZED THAT SHE HAD BOWEL MOVEMENT. NO SIGNS OF RESPIRATORY DISTRESS NOTED. DENIES PAIN AND DISCOMFORT AT THIS TIME. CALL LIGHT WITHIN REACH. SAFETY PRECAUTIONS IN PLACE. WILL CONTINUE TO MONITOR PATIENT.
--- NOTE | 2019-12-04 04:15 | NUR ---
RN ROUNDS PATIENT ASLEEP AT THIS TIME. NO SIGNS OF RESPIRATORY DISTRESS AND DISCOMFORT NOTED. BREATHING EVEN AND UNLABORED. CALL LIGHT WITHIN REACH. SAFETY PRECAUTIONS IN PLACE. WILL CONTINUE TO MONITOR PATIENT
[2019-12-04 06:10] LABS: BASOPHILS % (AUTO) 0.4 % (0.0-2.0); EOSINOPHILS # (AUTO) 0.1 K/uL (0.0-0.4); EOSINOPHILS % (AUTO) 0.8 % (0.0-4.0); HEMATOCRIT 38.3 % (36-48); HEMOGLOBIN 12.6 g/dL (12.0-16.0); LYMPHOCYTES % (AUTO) 19.3 % (20.5-51.5); MEAN CORPUSCULAR HEMOGLOBIN 30 pg (27-31); MEAN CORPUSCULAR HGB CONC 33 % (32-36); MEAN CORPUSCULAR VOLUME 93 fL (79.0-98.0); MONOCYTES # (AUTO) 1.3 K/uL (0.0-1.0); MONOCYTES % (AUTO) 12.3 % (1.7-9.3); NEUTROPHILS % (AUTO) 67.2 % (40.0-70.0); PLATELET COUNT (AUTO) 197 K/uL (130-430); RED BLOOD CELL COUNT(AUTO) 4.13 MIL/uL (4.2-6.2); RED CELL DISTRIBUTION WIDTH 14.1 % (9.0-15.0); WHITE BLOOD COUNT (AUTO) 10.4 K/uL (4.8-10.8)
[2019-12-04] MEDS: PIPERACILLIN/TAZO 4.5 GM in NS 100 ML IV SCH ×3 (06:10→23:16)
[2019-12-04] MEDS: MORPHINE 4 MG/ML INJ. SYRINGE IVP PRN ×4 (06:11→21:15)
[2019-12-04] MEDS: INSULIN REGULAR, HUMAN 100 UNITS/ML, 10 ML VIAL (humuLIN R) SUBCUT PRN ×2 (06:13→11:23)
--- NOTE | 2019-12-04 06:57 | NUR ---
CLOSING NOTES PATIENT WENT BACK TO SLEEP AFTER BS CHECK= 150. NO COVERAGE NEEDED AT THIS TIME. NO SIGNS OF RESPIRATORY DISTRESS AND DISCOMFORT NOTED. DENIES PAIN AT THIS TIME. IV SITE, PATENCY NOTED. BED LOCKED AND IN LOWEST POSITIONED. CALL LIGHT WITHIN REACH. ALL NEEDS ME THROUGHOUT THE SHIFT. SAFETY PRECAUTIONS IN PLACE. WILL CONTINUE TO MONITOR UNTIL ENDORSE TO ONCOMING SHIFT NURSE FOR CONTINUITY OF CARE.
[2019-12-04 07:50] VITALS: BP_SYST 102
--- NOTE | 2019-12-04 07:50 | NUR ---
OPENING NOTES Patient resting in bed. Patient awake and orientedX4. No acute respiratory distress or shortness of breath noted. Patient denied pain at this time. Patient has 20 gauge I.V on left AC and IV site is patency.Placed bed in the lowest position and call light within reach. Will continue to monitor.
[2019-12-04] MEDS: PANTOPRAZOLE SODIUM 40 MG TAB PO SCH (08:22)
[2019-12-04] MEDS: ASPIRIN 325 MG TABLET PO SCH (08:23)
[2019-12-04] MEDS: SERTRALINE HCL 50 MG TABLET PO SCH ×2 (08:23→23:14)
[2019-12-04] MEDS: [UNRECOGNIZED DRUG - OTHER] PO SCH (09:00)
[2019-12-04] MEDS: LISINOPRIL 10 MG TABLET (PRINIVIL) PO SCH (09:00)
[2019-12-04 11:10] VITALS: BP_SYST 100
--- NOTE | 2019-12-04 11:15 | NUR ---
Rounds Patient resting in bed. Patient awake and orientedX4. Patient told that she had generalized pain through head, left shoulder, chest with pain level 10 out of 10. Given I.V morphine for pain as PRN and it worked well.
[2019-12-04] MEDS: ACETAMINOPHEN 500 MG TABLET PO PRN (12:55)
[2019-12-04 15:30] VITALS: BP_SYST 105
[2019-12-04] MEDS: AZITHROMYCIN 500 MG in NS 250 ML IV SCH (16:42)
--- NOTE | 2019-12-04 17:30 | NUR ---
ID ROUNDS: Patient seen by Dr. Muñoz and continue with same antibiotics as ordered.
--- NOTE | 2019-12-04 18:26 | NUR ---
CLOSING NOTES Patient resting in bed. Patient awake and orientedX4. I.V antibiotic is running on left AC 20 gauge without infiltration and IV site is patency. Skin is intact. No acute respiratory distress or shortness of breath noted. Patient denied pain at this time. Placed call light within reach and bed in the lowest position. Will continue to monitor.
[2019-12-04] MEDS: INDOMETHACIN 25 MG CAPSULE(INDOCIN) PO SCH (23:14)
[2019-12-04] MEDS: ATORVASTATIN 20 MG TABLET PO SCH (23:14)
[2019-12-04] MEDS: BISACODYL 5 MG TABLET.DR (DULCOLAX) PO SCH (23:15)
[2019-12-04] MEDS: ONDANSETRON HCL 4 MG/2 ML VIAL IVP PRN (23:49)
[2019-12-04] MEDS: HYDROcodone/ACETAMIN 5-325 MG TAB (NORCO/ VICODIN) PO PRN (23:56)
--- NOTE | 2019-12-05 00:44 | NUR ---
IV BEEPING - SL TO LEFT AC DID NOT FLUSH. CATHETER REMOVED AND FOUND IT HAD TWO 90DEGREE KINKS IN IT. RESTARTED SL TO L FOREARM (1 STICK) W 22G CATHETER. SITE FLUSHES WELL. PT TOLERATED PROCEDURE WELL.
[2019-12-05] MEDS: PIPERACILLIN/TAZO 4.5 GM in NS 100 ML IV SCH ×3 (05:12→21:42)
[2019-12-05] MEDS: MORPHINE 4 MG/ML INJ. SYRINGE IVP PRN ×4 (06:16→22:29)
[2019-12-05 06:38] LABS: BASOPHILS % (AUTO) 0.3 % (0.0-2.0); EOSINOPHILS % (AUTO) 0.3 % (0.0-4.0); HEMATOCRIT 37.3 % (36-48); HEMOGLOBIN 12.2 g/dL (12.0-16.0); LYMPHOCYTES # (AUTO) 1.8 K/uL (1.0-5.5); LYMPHOCYTES % (AUTO) 15.3 % (20.5-51.5); MEAN CORPUSCULAR HEMOGLOBIN 30 pg (27-31); MEAN CORPUSCULAR HGB CONC 33 % (32-36); MEAN CORPUSCULAR VOLUME 93 fL (79.0-98.0); MONOCYTES # (AUTO) 1.4 K/uL (0.0-1.0); MONOCYTES % (AUTO) 11.6 % (1.7-9.3); NEUTROPHILS # (AUTO) 8.6 K/uL (1.8-7.7); NEUTROPHILS % (AUTO) 72.5 % (40.0-70.0); PLATELET COUNT (AUTO) 188 K/uL (130-430); RED BLOOD CELL COUNT(AUTO) 4.02 MIL/uL (4.2-6.2); WHITE BLOOD COUNT (AUTO) 11.8 K/uL (4.8-10.8)
[2019-12-05 06:45] LABS: CALCIUM 8.6 mg/dL (8.4-11.0); CREATININE 0.63 mg/dL (0.55-1.30); POTASSIUM 3.2 mmol/L (3.5-5.1)
[2019-12-05 08:00] VITALS: BP_SYST 119
--- NOTE | 2019-12-05 08:00 | NUR ---
Opening Notes: Pt received in bed. Pain 0/10. Resp even and unlabored. No fever noted. AAOx4. Room Air. Call light in reach. Encouraged to call for assistance. Pt agreed. Will continue to monitor.
[2019-12-05] MEDS: INDOMETHACIN 25 MG CAPSULE(INDOCIN) PO SCH ×2 (08:16→21:41)
[2019-12-05] MEDS: ASPIRIN 325 MG TABLET PO SCH (08:16)
[2019-12-05] MEDS: PANTOPRAZOLE SODIUM 40 MG TAB PO SCH (08:18)
[2019-12-05] MEDS: SERTRALINE HCL 50 MG TABLET PO SCH ×2 (08:18→21:42)
[2019-12-05] MEDS: [UNRECOGNIZED DRUG - OTHER] PO SCH (08:19)
[2019-12-05] MEDS: LISINOPRIL 10 MG TABLET (PRINIVIL) PO SCH (08:19)
--- NOTE | 2019-12-05 09:15 | NUR ---
Paged Dr. Park regarding Potassium 3.2
[2019-12-05] MEDS ORDERED: COLCHICINE 0.6 MG TABLET PO ONE (10:00)
--- NOTE | 2019-12-05 10:14 | NUR ---
Nutrition Update Regino Scale 18 noted. Pt admitted for pneumonia. Diet: [facility] BMI: 30.9 kg/m2 RD to follow per nutrition care standards.
[2019-12-05] MEDS: MITIGARE 0.6 MG PO SCH ×2 (10:18→21:40)
--- NOTE | 2019-12-05 11:13 | NUR ---
repaged dr vicente for k of 3.2, called back and new order given
[2019-12-05] MEDS ORDERED: POTASSIUM CHLORIDE 20 MEQ TAB.PRT.SR PO ONE (11:30)
[2019-12-05] MEDS: INSULIN REGULAR, HUMAN 100 UNITS/ML, 10 ML VIAL (humuLIN R) SUBCUT PRN ×3 (12:19→21:50)
[2019-12-05 12:45] VITALS: BP_SYST 94
[2019-12-05] MEDS: HYDROcodone/ACETAMIN 5-325 MG TAB (NORCO/ VICODIN) PO PRN (14:12)
[2019-12-05] MEDS: AZITHROMYCIN 500 MG in NS 250 ML IV SCH (15:24)
--- NOTE | 2019-12-05 15:52 | NUR ---
stephanie Park d/t pt c/o bounding pulse
--- NOTE | 2019-12-05 16:42 | NUR ---
Dietitian Recommendations * Recommend [facility] standard carb-60 gm diet w/ Glucerna TID (ONS provides an additional 660 kcal/day, 30 gm protein/day) * Diabetic-friendly snacks in-between meals BID * Cardiac therapeutic diet restriction is not yet warranted d/t suboptimal PO intakes LP, RD Please refer to Nutrition Assessment for details. Addendum: 12/05/19 at [address] Amended: Links added.
[2019-12-05 16:53] VITALS: BP_SYST 91
--- NOTE | 2019-12-05 17:34 | NUR ---
CONSULTATION PAGED/CALLED Reason for Consultation: TACHYCARDIA Person Who was Notified: PRESTON Consulting Physician: GALEN Borderer Specialty: CARDIO Ordering Physician: YOLANDE
[2019-12-05] MEDS: ACETAMINOPHEN 500 MG TABLET PO PRN (18:00)
--- NOTE | 2019-12-05 18:40 | NUR ---
Paged Dr. Leary, dairy nutritionist for Dr. Bobby.
--- NOTE | 2019-12-05 18:54 | NUR ---
pt c/o at 1820 chest pain, tightness on her jaw and teeth, pt's hr on monitor on the 150's p2 given o2 and ms 4 mg given at 1836, paged dr naidu, waiting for md to call, monitoring pt.
[2019-12-05] MEDS ORDERED: AMIODARONE HCL 150 MG/3ML VIAL IVP ONE (19:15)
[2019-12-05] MEDS ORDERED: AMIODARONE HCL 150 MG/3ML VIAL ONE (19:31)
[2019-12-05 19:45] VITALS: BP_SYST 118
--- NOTE | 2019-12-05 19:50 | NUR ---
CLOSING NOTES, PT ENDORSED TO NIGHT NURSE, PT'S HR STILL ON THE 130S-150S, PT WAS GIVEN AMIODARONE IVP AT 1920, PT STATED THAT HER JAW TIGHTNESS IS BETTER. SPOKE WITH CARDINAL PHARMACIST THANIA TO VERIFY THE ORDER FOR AMIO DRIP.
--- NOTE | 2019-12-05 19:50 | NUR ---
INITIAL NOTE AT INITIAL ASSESSMENT, PATIENT IS RESTING IN BED, NO SIGNS OF RESPIRATORY DISTRESS. PATIENT'S HR IS ELEVATED, BUT SHE IS OTHERWISE STABLE. PATIENT VERBALIZES TOLERABLE PAIN AT THIS TIME. PLAN OF CARE FOR THE EVENING IS COMMUNICATED WITH THE PATIENT. PATIENT DEMONSTRATES CORRECT USAGE OF CALL LIGHT AT THIS TIME. CALL LIGHT IS PLACED WITHIN REACH. BED IS LOCKED, ALARMED, AND AT THE LOWEST LEVEL. FALL, SAFETY, ASPIRATION, AND RESPIRATORY PRECAUTIONS WILL BE TAKEN. PATIENT'S CARDIAC STATUS WILL BE MONITORED CLOSELY THROUGHOUT THE SHIFT.
[2019-12-05] MEDS: AMIODARONE HCL 900 MG in D5W 482 ML IV SCH (20:30)
--- NOTE | 2019-12-05 20:30 | NUR ---
AMIODARONE INITIATED AMIODARONE INITIATED AT THIS TIME PER MD ORDERS. PATIENT WILL BE MONITORED CLOSELY. SHE IS RESPOSITIONED FOR COMFORT, STABLE, NO SIGNS OF RESPIRATORY DISTRESS. CALL LIGHT PLACED WITHIN REACH. BED IS LOCKED, ALARMED, AND AT THE LOWEST LEVEL.
[2019-12-05] MEDS ORDERED: AMIODARONE HCL 900 MG/18 ML VIAL IV ONE (20:31)
[2019-12-05] MEDS ORDERED: COLCHICINE 0.6 MG TABLET PO SCH (21:00)
[2019-12-05] MEDS: BISACODYL 5 MG TABLET.DR (DULCOLAX) PO SCH (21:00)
[2019-12-05] MEDS: ATORVASTATIN 20 MG TABLET PO SCH (21:41)
--- NOTE | 2019-12-05 22:06 | NUR ---
Kiara Park s/w Patrica
--- NOTE | 2019-12-05 23:17 | NUR ---
Kiara Leary, ornamental iron erector for Dr. Bobby s/w Daxa
--- NOTE | 2019-12-05 23:23 | NUR ---
COMMUNICATION WITH DR. ASTRID RESENDIZ HAS PAGED BACK AT THIS TIME, HE WAS MADE AWARE THAT PATIENT CONVERTED TO SINUS RHYTHM, WITH HR AVERAGING CURRENTLY IN MID-HIGH 90'S. HE VERBALIZED HE DOSE NOT WANT TO MAKE CHANGES TO THE AMIODARONE DRIP ORDERED, AND HE DOES NOT WANT TO PLACE ANY PARAMETERS FOR THE MEDICATION. ORDER READ BACK, CONFIRMED, AND WILL BE FOLLOWED THROUGH. PATIENT WILL BE MONITORED CLOSELY. Addendum: 12/05/19 at 2332 by Roosevelt Medrano RN (DR. RESENDIZ IS INTELLIGENCE GROUP SUPERVISOR FOR DR. SHEN)
--- NOTE | 2019-12-05 23:25 | NUR ---
Second call for Dr. Park s/bakari Burciaga
--- NOTE | 2019-12-05 23:28 | NUR ---
COMMUNICATION WITH DR. YOLANDE LANIER HAS BEEN PAGED AT THIS TIME, PATIENT'S COMPLAINT OF SOB, WELL HER PAIN MEDICATION BEING INEFFECTIVE COMMUNICATED. PHYSICIAN HAS DENIED REQUEST FOR CHANGE IN PAIN MEDICATION. MD HAS GRANTED REQUEST FOR HHN TREATMENTS PRN. MD DENIED REQUEST FOR MORNING LAB WORK WELL CXR. ORDERS READ BACK, VERIFIED, AND ENTERED.
[2019-12-05 23:49] VITALS: BP_SYST 113
--- NOTE | 2019-12-05 23:55 | NUR ---
Kiara Leary s/w Daxa
[2019-12-06] VITALS (14 sets, daily range): BP systolic 78–125
--- NOTE | 2019-12-06 | NUR ---
COMMUNICATION WITH DR. ASTRID RESENDIZ HAS PAGED BACK AT THIS TIME, HE WAS MADE AWARE THAT PATIENT'S BLOOD PRESSURE IS LOW, WITH SBP AVERAGING HIGH 70'S TO LOW 80'S, PATIENT ASYMPTOMATIC OTHERWISE, HR HAS BEEN SINUS RHYTHM. HE VERBALIZED HE DOES NOT WANT TO MAKE CHANGES TO THE AMIODARONE DRIP ORDERED, AND HE DOES NOT WANT TO PLACE ANY PARAMETERS FOR THE MEDICATION. HE HAS ALSO ORDERED ONE TIME DOSE OF 250 ML BOLUS NS, AND VERBALIZED THERE IS NO NEED TO CALL THE PATIENT'S PRIMARY PHYSICIAN FOR THE SAME REASON. ORDER READ BACK, CONFIRMED, AND WILL BE FOLLOWED THROUGH. PATIENT WILL BE MONITORED CLOSELY.
[2019-12-06] MEDS ORDERED: NACL 0.9% 250 ML IV STA (00:02)
[2019-12-06] MEDS ORDERED: NACL 0.9% 250 ML IV ONE (00:15)
[2019-12-06] MEDS: ALBUTEROL SULFATE 0.083% 2.5 MG/3 ML VIAL.NEB INH PRN ×3 (00:25→20:57)
--- NOTE | 2019-12-06 01:30 | NUR ---
NOTE PATIENT IS SLEEPING, STABLE, NO SIGNS OF RESPIRATORY DISTRESS. CALL LIGHT WITHIN REACH. BED IS LOCKED, ALARMED, AND AT THE LOWEST LEVEL.
--- NOTE | 2019-12-06 02:30 | NUR ---
AMIODARONE DOSE CHANGED PER ORDERS AMIODARONE DOSE CHANGED PER MD ORDERS AT THIS TIME. PATIENT WILL BE MONITORED CLOSELY. SHE IS REPOSITIONED FOR COMFORT, STABLE, NO SIGNS OF RESPIRATORY DISTRESS. CALL LIGHT PLACED WITHIN REACH. BED IS LOCKED, ALARMED, AND AT THE LOWEST LEVEL.
[2019-12-06] MEDS: AMIODARONE HCL 900 MG in D5W 482 ML IV SCH (02:38)
--- NOTE | 2019-12-06 04:30 | NUR ---
NOTE PATIENT IS SLEEPING, STABLE, NO SIGNS OF RESPIRATORY DISTRESS. CALL LIGHT WITHIN REACH. BED IS LOCKED, ALARMED, AND AT THE LOWEST LEVEL.
[2019-12-06] MEDS: PIPERACILLIN/TAZO 4.5 GM in NS 100 ML IV SCH ×3 (05:59→22:16)
[2019-12-06] MEDS: INSULIN REGULAR, HUMAN 100 UNITS/ML, 10 ML VIAL (humuLIN R) SUBCUT PRN ×3 (06:11→20:44)
--- NOTE | 2019-12-06 06:30 | NUR ---
LOW BP PATIENT'S BP IS STILL LOW AT THIS TIME, SHE VERBALIZES SHE "FEELS JUST FINE", VOICE NETWORK ADMINISTRATOR WILL BE PAGED REGUARDLESS DUE TO THE PATIENT'S SBP AVERAGING HIGH 70'S, LOW 80'S AT THIS TIME. SHE IS OTHERWISE STABLE, NO SIGNS OF RESPIRATORY DISTRESS. CALL LIGHT WITHIN REACH. BED IS LOCKED, ALARMED, AND AT THE LOWEST LEVEL.
--- NOTE | 2019-12-06 06:35 | NUR ---
CALLED : DR AARON WHO IS SPRAY STAINER FOR DR BASS CALLED BACK AND TALKED WITH PRIMARY NURSE AT [facility] AND HE ASKED TO GIVE PHONE TO CHARGE NURSE . I TALKED WITH MD , MD WAS NOT HAPPY TO CALL HIM FOR LOW BP , NOTIFIED MD THAT PTS BP GONE BELOW 90S AFTER AMIODARONE DRIP STARTED PT ALREADY CONVERTED TO SR AND HR IS ON THE 70S NOW . MD ASKED TO START PT ON LEVOPHED , ASKED MD DO YOU WANT TO CONTINUE AMIODARONE, AND INFORMED MD THAT WE CANNOT START LEVOPHED ON THIS FLOOR , WE NEED TO TRANSFER PT TO ICU , THEN CHANGED ORDER , ORDERED TO STOP AMIODARONE DRIP NOW AND WAIT FOR 1 HR , IF BP IS STILL LOW , TRANSFER PT TO ICU AND START PT ON LEVOPHED . ORDER ENTERED .AND NOTIFIED PRIMARY RN .
--- NOTE | 2019-12-06 06:50 | NUR ---
CLOSING NOTE PATIENT WAS COMFORTABLE THROUGHOUT THE SHIFT, ALTHOUGH HER BLOOD PRESSURE WAS LOW STARTING AROUND MIDNIGHT. AT THIS TIME, SHE IS RESTING IN BED, STABLE, NO SIGNS OF RESPIRATORY DISTRESS. BED IS LOCKED, ALARMED, AND AT THE LOWEST LEVEL. FALL, SAFETY, RESPIRATORY, AND ASPIRATION PRECAUTIONS HAVE BEEN TAKEN THROUGHOUT THE SHIFT. WILL CONTINUE TO MONITOR CLOSELY UNTIL SHIFT REPORT IS GIVEN AT BEDSIDE TO AM NURSE. BOTH AM AND PM CHARGE NURSES ARE AWARE OF PATIENT'S CONDITION.
--- NOTE | 2019-12-06 07:20 | NUR ---
OPENING NOTES, RECEIVED PT IN BED, BP STILL LOW AT 78/47 HR 82, PT AAOX4, ASYMPTOMATIC, C/O PAIN BUT PT IS AWARE SHE CANNOT GET PAIN MED OF THIS TIME. PER REPORT PT RECEIVED BOLUS OF 250 CC NS AND AMIODATONE DRIP OF 0.5 MG/MIN WAS STOPPED AT 0630AM DUE TO LOW BP.
[2019-12-06] MEDS: LISINOPRIL 10 MG TABLET (PRINIVIL) PO SCH (08:27)
[2019-12-06] MEDS: ASPIRIN 325 MG TABLET PO SCH (08:47)
[2019-12-06] MEDS: PANTOPRAZOLE SODIUM 40 MG TAB PO SCH (08:47)
[2019-12-06] MEDS: SERTRALINE HCL 50 MG TABLET PO SCH ×2 (08:47→20:37)
[2019-12-06] MEDS: INDOMETHACIN 25 MG CAPSULE(INDOCIN) PO SCH ×2 (08:47→20:36)
[2019-12-06] MEDS: MITIGARE 0.6 MG PO SCH ×2 (08:49→20:37)
--- NOTE | 2019-12-06 09:00 | NUR ---
Assisted patient with ambulating to the bathroom. Pt urinated x 1. Assisted back into bed with no episodes of a fall noted. Will continue to monitor
--- NOTE | 2019-12-06 09:01 | NUR ---
pt's bp 105/61 hr 80 r. upper arm. bp getting better now. will cont to monitor pt.
[2019-12-06 10:23] LABS: CALCIUM 8.7 mg/dL (8.4-11.0); CREATININE 0.61 mg/dL (0.55-1.30); POTASSIUM 3.6 mmol/L (3.5-5.1)
[2019-12-06] MEDS: NACL 0.9% 1,000 ML IV SCH (11:14)
[2019-12-06] MEDS: HYDROcodone/ACETAMIN 5-325 MG TAB (NORCO/ VICODIN) PO PRN (14:16)
--- NOTE | 2019-12-06 14:36 | NUR ---
ZITHROMAX D/C: MEDICATION D/C D/T QT PROLONGATION PER DR. TARAH LANIER
[2019-12-06] MEDS ORDERED: COLCHICINE 0.6 MG TABLET PO ONE (15:00)
[2019-12-06] MEDS ORDERED: COLCHICINE 0.6 MG TABLET ONE (17:45)
--- NOTE | 2019-12-06 18:36 | NUR ---
CLOSING NOTES: Hourly rounding performed. Pt AAOx4, resp even and unlabored. Pt continues with ATB for PNA and Zithromax was d/c for QT prolongation per Dr. Park. No acute distress noted. No fever noted. Will endorse to physician coding specialist nurse for continuity of care.
--- NOTE | 2019-12-06 19:30 | NUR ---
Opening notes Received report from day shift. Patient was coming from restroom to the bed. Patient is steady on her feet. Informed patient to use call light next time for standby assist. Patient is now back to bed, lying comfortably. No other needs at this time. Bed is in the lowest position with wheels locked. Call light within reach. Side rails up X2.
[2019-12-06] MEDS: ATORVASTATIN 20 MG TABLET PO SCH (20:35)
[2019-12-06] MEDS: BISACODYL 5 MG TABLET.DR (DULCOLAX) PO SCH (20:44)
[2019-12-06] MEDS ORDERED: COLCHICINE 0.6 MG TABLET PO SCH (21:00)
--- NOTE | 2019-12-06 21:10 | NUR ---
Medications RN administered 2100 scheduled medications. Educated the actions and side effects of medications, patient verbalized an understanding of medications. Patient tolerated well. Accu check was 223, insulin given per sliding scale. Patient is also requesting pain medication, however current BP is 100/59. Educated on the potential risks and side effects of pain medications, patient verbalized an understanding. Will reassess BP and pain at a later time. Patient has c/o pain in chest on inspiration, called RT for breathing treatment. No other needs at this time. Bed is in the lowest position with wheels locked. Call light within reach. Side rails up X3.
--- NOTE | 2019-12-06 22:24 | NUR ---
BP Recheck Rechecked BP it was 98/60. Patient is showing no signs or symptoms of distress. Will continue to monitor. At this time educated patient that it is not safe to admin pain medication, patient verbalized an understanding. Offered patient Tylenol, patient refused. She currently has cold compress on her head to relieve her pain. No other needs at this time. Bed is in the lowest position with wheels locked. Call light within reach. Side rails up X2.
--- NOTE | 2019-12-07 | NUR ---
RN rounds Patient's 0000 BP is 94/60, patient still has complaints of pain with inspiration. However due to her low BP at this time educated patient it is still not safe for pain medication. Patient refused Tylenol at this time. No signs of distress. Breathing is even and unlabored. No other needs at this time. Side rails up X2. Bed in the lowest position with wheels locked. Call light within reach.
[2019-12-07 00:05] VITALS: BP_SYST 94
--- NOTE | 2019-12-07 02:09 | NUR ---
RN Rounds Patient is sleeping comfortably at this time. No signs of distress noted. Breathing is even and unlabored. IV fluids infusing. No other needs at this time. Bed is locked in the lowest position. Side rails up X 2. Call light within reach.
[2019-12-07] MEDS: NACL 0.9% 1,000 ML IV SCH (05:30)
[2019-12-07 06:14] VITALS: BP_SYST 110
[2019-12-07] MEDS: PIPERACILLIN/TAZO 4.5 GM in NS 100 ML IV SCH ×3 (06:17→22:11)
[2019-12-07] MEDS: HYDROcodone/ACETAMIN 5-325 MG TAB (NORCO/ VICODIN) PO PRN ×3 (06:21→20:32)
[2019-12-07] MEDS: INSULIN REGULAR, HUMAN 100 UNITS/ML, 10 ML VIAL (humuLIN R) SUBCUT PRN ×3 (06:26→20:36)
--- NOTE | 2019-12-07 06:50 | NUR ---
Closing Notes Patient is resting, C/O of pain. Pain medication given as BP was 110/67. Patient educated on action and side effects. Patient verbalized an understanding. Accu check done blood sugar 184, insulin given per sliding scale. Encouraged patient to use incentive spirometer throughout the day to minimize complications. All needs met at this time. Bed rails up X2. Bed is in the lowest position with wheels locked. Call light within reach, Will endorse care to dayshift RN
--- NOTE | 2019-12-07 07:20 | NUR ---
OPENING NOTES RECEIVED BEDSIDE SBAR FROM NIGHT RN, PATIENT IN BED WITH EYES CLOSED, RESPIRATIONS EVEN, NON LABORED, BED IN LOW AND LOCKED POSITION, CALL LIGHT WITHIN REACH
[2019-12-07 07:36] LABS: BASOPHILS % (AUTO) 0.6 % (0.0-2.0); EOSINOPHILS # (AUTO) 0.3 K/uL (0.0-0.4); EOSINOPHILS % (AUTO) 3.8 % (0.0-4.0); HEMATOCRIT 31.5 % (36-48); HEMOGLOBIN 10.4 g/dL (12.0-16.0); LYMPHOCYTES # (AUTO) 1.2 K/uL (1.0-5.5); LYMPHOCYTES % (AUTO) 18.1 % (20.5-51.5); MEAN CORPUSCULAR HEMOGLOBIN 31 pg (27-31); MEAN CORPUSCULAR HGB CONC 33 % (32-36); MEAN CORPUSCULAR VOLUME 93 fL (79.0-98.0); MONOCYTES # (AUTO) 0.7 K/uL (0.0-1.0); NEUTROPHILS # (AUTO) 4.3 K/uL (1.8-7.7); NEUTROPHILS % (AUTO) 66.5 % (40.0-70.0); PLATELET COUNT (AUTO) 210 K/uL (130-430); RED CELL DISTRIBUTION WIDTH 13.8 % (9.0-15.0); WHITE BLOOD COUNT (AUTO) 6.5 K/uL (4.8-10.8)
[2019-12-07 07:50] LABS: CALCIUM 8.5 mg/dL (8.4-11.0); CREATININE 0.6 mg/dL (0.55-1.30); POTASSIUM 3.7 mmol/L (3.5-5.1)
[2019-12-07 08:00] VITALS: BP_SYST 97
[2019-12-07] MEDS: LISINOPRIL 10 MG TABLET (PRINIVIL) PO SCH (09:00)
[2019-12-07] MEDS: ASPIRIN 325 MG TABLET PO SCH (09:06)
[2019-12-07] MEDS: PANTOPRAZOLE SODIUM 40 MG TAB PO SCH (09:06)
--- NOTE | 2019-12-07 09:12 | NUR ---
md rounds Dr. Hussein bedside examining patient
[2019-12-07] MEDS: SERTRALINE HCL 50 MG TABLET PO SCH ×2 (09:28→20:30)
[2019-12-07] MEDS: MITIGARE 0.6 MG PO SCH ×2 (09:29→20:31)
[2019-12-07 12:03] VITALS: BP_SYST 112
--- NOTE | 2019-12-07 12:54 | NUR ---
Nutrition F/U RD reviewed pt's current EMR including diet Hx, physician notes, nursing notes, pertinent labs/meds/procedures, care trends and care activity. Current Diet Order: [facility] diet w/ Glucerna TID Subjective information: Pt sleeping in bed at time of RD visit. Per EMR, +post op Pneumonia, last BM 12/06, +healed Surgical incision to anterior abdomen and upper chest. PO intake: has remained the same since last visit (50% average of 3 meals). Labs: 12/06 Na 143WNL, K 3.7WNL, BG 194H, POC BG 161H, BUN 11WNL, CRE 0.6WNL Current PO intake: 50% average of 3 meals. Estimated Energy Expenditure (kcals/day) 8846-5166 kcal/day (30-35 kcal/kg Adj IBW for acute state) Estimated Protein Required (g/day) 61-73 gm/day (1-1.2 gm/kg Adj IBW for acute state) Estimated Fluid Required (l/day) 1.8-2.1 L/day (1 ml/kcal/day for maintenance) Problem/Etiology/Signs/Symptoms Suboptimal nutritional intakes related to lack of appetite associated w/ illness as evidenced by fair PO intake records and pt report. (*ongoing) Malnutrition related to unintentional wt loss as evidenced by 20# wt loss/10% wt change within 2-3 weeks. (*ongoing) Expected Outcomes/Goals - Monitor appetite and PO intakes w/ goal of pt meeting at least 75% of estimated nutritional needs, labs trending WNL, normal GI function, and skin integrity/wt maintenance Dietitian Recommendations * Recommend continuing [facility] standard carb-60 gm diet w/ Glucerna TID (ONS provides an additional 660 kcal/day, 30 gm protein/day) * Continue: Diabetic-friendly snacks in-between meals BID Follow Up High Risk: F/U in 2-3days
--- NOTE | 2019-12-07 13:03 | NUR ---
Dietitian Recommendations * Recommend continuing [facility] standard carb-60 gm diet w/ Glucerna TID (ONS provides an additional 660 kcal/day, 30 gm protein/day) * Continue: Diabetic-friendly snacks in-between meals BID Please see Nutrition F/U note.
--- NOTE | 2019-12-07 13:30 | NUR ---
WOUND CARE REMOVED DRESSING FROM LATER INCISION, CLEANSED WITH NS, PATTED DRY, COVERED WITH GAUZE, TAPED PLACE, CLEANSED MIDLINE INCISION WITH NS, PATTED DRY, LEFT OPEN TO ROOM AIR, PATIENT TOLERATED PROCEDURE WELL
--- NOTE | 2019-12-07 13:30 | NUR ---
IV REMOVAL PATIENT REQUESTED REMOVAL OF IV FROM RIGHT FOREARM DUE TO DISCOMFORT, REMOVED IV CATHETER, IV INTACT, NO BLEEDING, IV CATHETER TO LEFT FOREARM CLEAN, DRY AND INTACT, FLUIDS INFUSING WELL
--- NOTE | 2019-12-07 14:00 | NUR ---
EDUCATION EDUCATED PATIENT REGARDING USE AND PURPOSE OF INCENTIVE SPIROMETER, PATIENT VERBALIZED UNDERSTANDING AND STATED "MAYBE LATER"
[2019-12-07 16:19] VITALS: BP_SYST 112
[2019-12-07] MEDS: ACETAMINOPHEN 500 MG TABLET PO PRN (17:52)
--- NOTE | 2019-12-07 19:26 | NUR ---
closing notes bedside SBAR given to night Violeta ALVAREZ, patient in bed with eyes closed, respirations even non labored, bed in low and locked position, call light with in reach, care endorsed to Violeta ALVAREZ
[2019-12-07 20:00] VITALS: BP_SYST 118
--- NOTE | 2019-12-07 20:00 | NUR ---
Opening notes Pt AAOx4, VSS, afebrile. No s/s distress noted. IVF infusing at ordered rate L. FA 20G clear and patent. Call light within reach. Safety measures in place. Bed low, locked, siderails up x2. To monitor.
[2019-12-07] MEDS: ATORVASTATIN 20 MG TABLET PO SCH (20:31)
[2019-12-07] MEDS: INDOMETHACIN 25 MG CAPSULE(INDOCIN) PO SCH (20:31)
[2019-12-07] MEDS: BISACODYL 5 MG TABLET.DR (DULCOLAX) PO SCH (20:32)
--- NOTE | 2019-12-07 22:05 | NUR ---
Rounds Pt asleep, respirations even and unlabored. No s/s distress noted. IV antibiotic administered as scheduled. Call light within reach. Safety measures in place. To monitor.
--- NOTE | 2019-12-08 00:02 | NUR ---
Rounds Pt alert, awake, VSS no s/s distress noted. IVF infusing at ordered rate L FA clear and patent. Call light within reach. To monitor.
[2019-12-08 01:07] VITALS: BP_SYST 113
[2019-12-08] MEDS: NACL 0.9% 1,000 ML IV SCH ×2 (01:30→12:36)
--- NOTE | 2019-12-08 03:08 | NUR ---
Rounds Pt asleep, respirations even and unlabored. IVF infusing at ordered rate R. FA clear and patent. Call light within reach. Safety maintained. To monitor.
[2019-12-08] MEDS: PIPERACILLIN/TAZO 4.5 GM in NS 100 ML IV SCH (06:20)
--- NOTE | 2019-12-08 06:24 | NUR ---
Closing notes Pt awake, no s/s distress noted. Pt denies any pain at this time. IVF infusing at ordered rate L. FA 20G clear and patent. Blood sugar checked 120, no indication for insulin per ss protocol. Pt ambulates to the bathroom. Call light within easy reach. Bed low, locked, siderails up x2. To endorse to AM nurse.
--- NOTE | 2019-12-08 07:30 | NUR ---
OPENING NOTES: PATIENT IS AWAKE AND ALERT x4 LAYING DOWN IN BED. PATIENT STATES SHE HAS CHEST PAIN 8/10. PRN PAIN MEDS TO BE GIVEN. PATIENT IS TOLERATING OXYGEN ON ROOM AIR WITH NO SIGNS OF INFILTRATION NOTED. IV SITE IS PATENT WITH NO SIGNS OF INFILTRATION NOTED. PATIENT IN STABLE CONDITION. SAFETY, FALL AND ASPIRATION PRECAUTIONS ARE IN PLACE. BED LOCKED IN LOWEST POSITION WITH CALL LIGHT IN REACH. WILL CONTINUE TO MONITOR PATIENT FOR ANY CHANGES.
[2019-12-08 08:29] VITALS: BP_SYST 137
[2019-12-08] MEDS: ONDANSETRON HCL 4 MG/2 ML VIAL IVP PRN (09:07)
[2019-12-08] MEDS: ASPIRIN 325 MG TABLET PO SCH (09:07)
[2019-12-08] MEDS: PANTOPRAZOLE SODIUM 40 MG TAB PO SCH (09:08)
[2019-12-08] MEDS: SERTRALINE HCL 50 MG TABLET PO SCH (09:08)
[2019-12-08] MEDS: INDOMETHACIN 25 MG CAPSULE(INDOCIN) PO SCH (09:08)
[2019-12-08] MEDS: MITIGARE 0.6 MG PO SCH (09:09)
[2019-12-08] MEDS: MORPHINE 4 MG/ML INJ. SYRINGE IVP PRN (09:40)
--- NOTE | 2019-12-08 10:07 | NUR ---
RN ROUNDS: PATIENT IS AWAKE AND ALERT x4 LAYING DOWN IN BED. PATIENT STATES SHE HAS PAIN 8/10, PRN PAIN MEDS GIVEN. IV INTACT WITH NO SIGNS OF INFILTRATION. PATIENT TOLERATING OXYGEN ON ROOM AIR WITH NO SIGNS OF DISTRESS OR SHORTNESS OF BREATH. PATIENT IN STABLE CONDITION. WILL CONTINUE TO MONITOR PATIENT FOR ANY CHANGES.
[2019-12-08] MEDS: INSULIN REGULAR, HUMAN 100 UNITS/ML, 10 ML VIAL (humuLIN R) SUBCUT PRN (11:41)
[2019-12-08] MEDS ORDERED: METOPROLOL SUCCINATE 25 MG TAB.SR.24H (TOPROL XL) PO ONE (12:00)
[2019-12-08] MEDS ORDERED: cefTRIAXone 1 GM in D5W 50 ML IV SCH (12:00)
[2019-12-08 12:01] VITALS: BP_SYST 142
--- NOTE | 2019-12-08 12:02 | NUR ---
RN ROUNDS: PATIENT IS AWAKE AND ALERT x4 LAYING DOWN IN BED. PATIENT DENIES ANY PAIN AT THE MOMENT. NO SIGNS OF DISTRESS OR SHORTNESS OF BREATH NOTED. PATIENT IN STABLE CONDITION. WILL CONTINUE TO MONITOR PATIENT FOR ANY CHANGES.
--- NOTE | 2019-12-08 14:09 | NUR ---
RN ROUNDS: PATIENT IS ASLEEP LAYING DOWN IN BED. NO SIGNS OF DISTRESS OR SHORTNESS OF BREATH NOTED. PATIENT IN STABLE CONDITION. WILL CONTINUE TO MONITOR PATIENT FOR ANY CHANGES.
[2019-12-08 16:23] VITALS: BP_SYST 120
--- NOTE | 2019-12-08 18:59 | NUR ---
CLOSING NOTES: PATIENT IS AWAKE AND ALERT x4 LAYING DOWN IN BED. PATIENT DENIES ANY PAIN AT THE MOMENT. PATIENT IS READY TO GO HOME. PATIENT IS TOLERATING OXYGEN ON ROOM AIR WITH NO SIGNS OF INFILTRATION NOTED. IV SITE IS PATENT WITH NO SIGNS OF INFILTRATION NOTED. PATIENT IN STABLE CONDITION. SAFETY, FALL AND ASPIRATION PRECAUTIONS REMAINED IN PLACE THROUGHOUT THE SHIFT. BED LOCKED IN LOWEST POSITION WITH CALL LIGHT IN REACH. WILL ENDORSE PATIENT CARE TO ONCOMING ZIPPER TRIMMER NURSE.
[2019-12-08 19:05] VITALS: BP_SYST 120
[2019-12-08 19:19] LABS: MYCOPLASMA PNEUMONIAE IgM <770 U/mL (0-769)
--- NOTE | 2019-12-08 19:30 | NUR ---
D/C Patient: Patient given medication reconciliation form and D/C instructions. Exit Care provided. Patient verbalized understanding. MD discussed with patient the results and treatment provided. Ambulatory with steady gait for discharge to home. Patient in stable condition, ID band removed. IV catheter removed, intact and dressing applied, no active bleeding. Rx of INDOCIN AND CHOLCHICIN given. Patient educated on pain management. All belongings sent with patient.
[2019-12-08] MEDS ORDERED: METOPROLOL SUCCINATE 25 MG TAB.SR.24H (TOPROL XL) PO SCH (21:00)
== END 2019-12-08 19:30 | disposition home or self-care (01) | DRG 205 ==
LOC: SED 10:49 → STU 17:22 → SED 17:48 → STU 19:03
PROVIDERS: ADMIT Family Medicine; ATTEND Family Medicine
DX: J95.89 Other postprocedural complications and disorders of respiratory system, not elsewhere classified (principal); J18.9 Pneumonia, unspecified organism; I31.3 Pericardial effusion (noninflammatory); E11.9 Type 2 diabetes mellitus without complications; I48.0 Paroxysmal atrial fibrillation; E78.5 Hyperlipidemia, unspecified; E66.9 Obesity, unspecified; M19.90 Unspecified osteoarthritis, unspecified site; K57.90 Diverticulosis of intestine, part unspecified, without perforation or abscess without bleeding; J45.909 Unspecified asthma, uncomplicated; I11.0 Hypertensive heart disease with heart failure; I50.9 Heart failure, unspecified; G89.4 Chronic pain syndrome; M25.512 Pain in left shoulder; Y83.8 Other surgical procedures as the cause of abnormal reaction of the patient, or of later complication, without mention of misadventure at the time of the procedure; I25.10 Atherosclerotic heart disease of native coronary artery without angina pectoris; F17.200 Nicotine dependence, unspecified, uncomplicated; Z80.8 Family history of malignant neoplasm of other organs or systems; Z82.49 Family history of ischemic heart disease and other diseases of the circulatory system; Z79.82 Long term (current) use of aspirin; Z79.899 Other long term (current) drug therapy; Y92.89 Other specified places as the place of occurrence of the external cause; Z68.30 Body mass index [BMI] 30.0-30.9, adult
CPT/HCPCS: 36415; 71045; 71046-TC; 71275; 80048; 80053; 81003; 82962; 83605; 83735-TC; 83880; 84484; 85025; 85379; 85651-TC; 86635; 86710; 86738; 87040-TC; 87081; 87449; 93005; 93306; 94640; 96365; 96375; 96376; 99285; G0378; J0282; J0456; J0696; J1815; J2270; J2405; J2543; J7030; J7050; J7060; J7613; Q9967

== ENCOUNTER 2020-01-14 07:29 | Emergency (ER) | payer OTHER ==
[~2020-01-14] VITALS: Ht 162.6 cm; Wt 81.6 kg
[~2020-01-14 07:29] MED LIST changes: +ASPI-989 PO; +[UNRECOGNIZED DRUG - OTHER] PO
[2020-01-14 07:30] VITALS: BP_SYST 132
[2020-01-14 08:23] LABS: BASOPHILS % (AUTO) 0.5 % (0.0-2.0); EOSINOPHILS # (AUTO) 0.1 K/uL (0.0-0.4); HEMATOCRIT 39.7 % (36-48); HEMOGLOBIN 13.3 g/dL (12.0-16.0); LYMPHOCYTES # (AUTO) 2.1 K/uL (1.0-5.5); LYMPHOCYTES % (AUTO) 26.5 % (20.5-51.5); MEAN CORPUSCULAR HEMOGLOBIN 31 pg (27-31); MEAN CORPUSCULAR HGB CONC 34 % (32-36); MEAN CORPUSCULAR VOLUME 91 fL (79.0-98.0); MONOCYTES # (AUTO) 0.6 K/uL (0.0-1.0); MONOCYTES % (AUTO) 7.5 % (1.7-9.3); NEUTROPHILS # (AUTO) 5.2 K/uL (1.8-7.7); NEUTROPHILS % (AUTO) 64.5 % (40.0-70.0); PLATELET COUNT (AUTO) 191 K/uL (130-430); RED BLOOD CELL COUNT(AUTO) 4.36 MIL/uL (4.2-6.2); RED CELL DISTRIBUTION WIDTH 14.9 % (9.0-15.0); WHITE BLOOD COUNT (AUTO) 8.1 K/uL (4.8-10.8)
[2020-01-14 08:38] LABS: CALCIUM 8.5 mg/dL (8.4-11.0); CREATININE 0.85 mg/dL (0.55-1.30); POTASSIUM 3.6 mmol/L (3.5-5.1)
[2020-01-14 08:50] LABS: ALBUMIN 3.6 g/dL (3.4-4.8); TOTAL BILIRUBIN 0.4 mg/dL (0.0-1.0)
[2020-01-14] MEDS: KETOROLAC TROMETHAMINE 60 MG/2 ML VIAL IM ONE (08:55)
[2020-01-14 10:01] VITALS: BP_SYST 104
== END 2020-01-14 10:01 | disposition home or self-care (01) ==
LOC: SED 07:29
DX: F41.9 Anxiety disorder, unspecified (principal); R07.89 Other chest pain; E78.5 Hyperlipidemia, unspecified; J45.909 Unspecified asthma, uncomplicated; I11.0 Hypertensive heart disease with heart failure; I50.9 Heart failure, unspecified; E11.9 Type 2 diabetes mellitus without complications; Z79.899 Other long term (current) drug therapy; Z79.82 Long term (current) use of aspirin
CPT/HCPCS: 36415; 71045; 80053; 82550; 83880; 84484; 85025; 93005; 96372; 99285; J1885

== ENCOUNTER 2020-02-27 10:03 | Outpatient (CLI) | payer OTHER ==
[2020-02-27 11:06] LABS: BILIRUBIN,URINE NEGATIVE (NEGATIVE); BLOOD, URINE NEGATIVE (NEGATIVE); CLARITY/URINE CLEAR (CLEAR); COLOR,URINE YELLOW (YELLOW); GLUCOSE,URINE 3+ (NEGATIVE); KETONES,URINE NEGATIVE (NEGATIVE); LEUKOCYTE ESTERASE ,URINE NEGATIVE (NEGATIVE); NITRITE, URINE NEGATIVE (NEGATIVE); PROTEIN URINE NEGATIVE (NEGATIVE); UROBILINOGEN,URINE 0.2 (0.2-1.0)
[2020-02-27 11:08] LABS: BASOPHILS # (AUTO) 0.1 K/uL (0.0-0.2); BASOPHILS % (AUTO) 0.7 % (0.0-2.0); EOSINOPHILS # (AUTO) 0.2 K/uL (0.0-0.4); EOSINOPHILS % (AUTO) 2.7 % (0.0-4.0); HEMATOCRIT 43.7 % (36-48); HEMOGLOBIN 14.7 g/dL (12.0-16.0); MEAN CORPUSCULAR HEMOGLOBIN 30 pg (27-31); MEAN CORPUSCULAR HGB CONC 34 % (32-36); MEAN CORPUSCULAR VOLUME 90 fL (79.0-98.0); MONOCYTES # (AUTO) 0.6 K/uL (0.0-1.0); MONOCYTES % (AUTO) 8.7 % (1.7-9.3); NEUTROPHILS # (AUTO) 3.9 K/uL (1.8-7.7); NEUTROPHILS % (AUTO) 57.9 % (40.0-70.0); PLATELET COUNT (AUTO) 222 K/uL (130-430); RED BLOOD CELL COUNT(AUTO) 4.84 MIL/uL (4.2-6.2); RED CELL DISTRIBUTION WIDTH 15.1 % (9.0-15.0); WHITE BLOOD COUNT (AUTO) 6.7 K/uL (4.8-10.8)
[2020-02-27 11:14] LABS: BACTERIA,URINE FEW /HPF (None Seen); RBC,URINE 0-3 /HPF (0-3); WBC,URINE 0-3 /HPF (0-3)
[2020-02-27 11:24] LABS: PROTHROMBIN TIME 10.2 SECS (9.5-12.5)
[2020-02-27 11:37] LABS: CREATININE 0.73 mg/dL (0.55-1.30); POTASSIUM 3.8 mmol/L (3.5-5.1); THYROID STIMULATING HORMONE 1.26 uIu/mL (0.34-4.82); TOTAL BILIRUBIN 0.4 mg/dL (0.0-1.0); URIC ACID 4.4 mg/dL (2.4-7.0)
[2020-02-28 08:06] LABS: CORTISOL (SERUM) 7.2 ug/dL (.)
[2020-02-28 09:32] LABS: HEMOGLOBIN A1C 6.6 % (4.8-5.6)
== END 2020-02-27 20:51 | disposition home or self-care (01) ==
LOC: SLB 10:03
PROVIDERS: ATTEND Internal Medicine
DX: Z00.00 Encounter for general adult medical examination without abnormal findings (principal)
CPT/HCPCS: 36415; 80053; 80061; 81000-TC; 82306; 82533; 82607; 83036; 84443-TC; 84550-TC; 85025; 85610-TC; 85730-TC

== ENCOUNTER 2020-02-29 08:19 | Outpatient (CLI) | payer OTHER | END 2020-02-29 21:05 | disposition home or self-care (01) | LOC: SCA 08:19 | PROVIDERS: ATTEND Internal Medicine | DX: I31.3 Pericardial effusion (noninflammatory) (principal) | CPT/HCPCS: 93005; 93306 ==

== ENCOUNTER 2020-03-01 07:10 | Outpatient (CLI) | payer OTHER | END 2020-03-01 18:18 | disposition home or self-care (01) | LOC: SUS 07:10 | PROVIDERS: ATTEND Internal Medicine | DX: Z12.31 Encounter for screening mammogram for malignant neoplasm of breast (principal); R10.13 Epigastric pain; N64.89 Other specified disorders of breast; N28.1 Cyst of kidney, acquired | CPT/HCPCS: 76700-TC; 77067 ==

== ENCOUNTER 2020-04-05 07:54 | Outpatient (CLI) | payer OTHER | END 2020-04-05 20:24 | disposition home or self-care (01) | LOC: SCT 07:54 | PROVIDERS: ATTEND Internal Medicine | DX: R91.1 Solitary pulmonary nodule (principal) | CPT/HCPCS: 71250-TC ==

== ENCOUNTER 2020-05-24 06:27 | Day surgery (SDC) | payer OTHER, SELFPAY ==
[2020-05-24] MEDS ORDERED: fentaNYL CITRATE/PF 100 MCG/2 ML AMP ONE (07:33)
[2020-05-24] MEDS: MIDAZOLAM HCL 5 MG/5 ML VIAL ONE ×2 (08:12→08:14)
[2020-05-24 10:11] VITALS: BP_SYST 120
== END 2020-05-24 10:13 | disposition home or self-care (01) ==
LOC: SDS 06:27 → SMU 06:27 → SDS 10:13
PROVIDERS: ATTEND Internal Medicine
DX: R13.10 Dysphagia, unspecified (principal); K21.9 Gastro-esophageal reflux disease without esophagitis; J45.909 Unspecified asthma, uncomplicated; F32.9 Major depressive disorder, single episode, unspecified; E78.5 Hyperlipidemia, unspecified; I10 Essential (primary) hypertension; F17.200 Nicotine dependence, unspecified, uncomplicated; Z20.828 Contact with and (suspected) exposure to other viral communicable diseases
CPT/HCPCS: 43239; 88305; 88313; 99152; G0378; J2250; J3010; J7030; U0003

== ENCOUNTER 2020-09-05 06:28 | Outpatient (CLI) | payer OTHER ==
[2020-09-05 07:55] LABS: BASOPHILS % (AUTO) 0.5 % (0.0-2.0); EOSINOPHILS # (AUTO) 0.1 K/uL (0.0-0.4); EOSINOPHILS % (AUTO) 1.7 % (0.0-4.0); HEMATOCRIT 44.1 % (36-48); HEMOGLOBIN 14.6 g/dL (12.0-16.0); LYMPHOCYTES # (AUTO) 3.1 K/uL (1.0-5.5); MEAN CORPUSCULAR HEMOGLOBIN 31 pg (27-31); MEAN CORPUSCULAR HGB CONC 33 % (32-36); MEAN CORPUSCULAR VOLUME 93 fL (79.0-98.0); MONOCYTES # (AUTO) 0.6 K/uL (0.0-1.0); MONOCYTES % (AUTO) 7.8 % (1.7-9.3); NEUTROPHILS # (AUTO) 3.8 K/uL (1.8-7.7); PLATELET COUNT (AUTO) 203 K/uL (130-430); RED BLOOD CELL COUNT(AUTO) 4.73 MIL/uL (4.2-6.2); RED CELL DISTRIBUTION WIDTH 14.9 % (9.0-15.0); WHITE BLOOD COUNT (AUTO) 7.7 K/uL (4.8-10.8)
[2020-09-05 08:13] LABS: ALBUMIN 3.9 g/dL (3.4-4.8); CREATININE 0.55 mg/dL (0.55-1.30); POTASSIUM 3.9 mmol/L (3.5-5.1); THYROID STIMULATING HORMONE 1.75 uIu/mL (0.36-3.74); TOTAL BILIRUBIN 0.2 mg/dL (0.0-1.0)
[2020-09-06 11:16] LABS: HEMOGLOBIN A1C 6.4 % (4.8-5.6)
== END 2020-09-05 20:46 | disposition home or self-care (01) ==
LOC: SLB 06:28
PROVIDERS: ATTEND Internal Medicine
DX: E11.65 Type 2 diabetes mellitus with hyperglycemia (principal); E78.5 Hyperlipidemia, unspecified; E55.9 Vitamin D deficiency, unspecified; I48.0 Paroxysmal atrial fibrillation; I10 Essential (primary) hypertension
CPT/HCPCS: 36415; 80053; 80061; 82306; 83036; 84443-TC; 85025

== ENCOUNTER 2020-09-30 07:15 | Outpatient (CLI) | payer OTHER ==
[2020-09-30 08:16] LABS: BASOPHILS # (AUTO) 0.1 K/uL (0.0-0.2); BASOPHILS % (AUTO) 0.9 % (0.0-2.0); EOSINOPHILS # (AUTO) 0.1 K/uL (0.0-0.4); EOSINOPHILS % (AUTO) 1.8 % (0.0-4.0); HEMATOCRIT 43.7 % (36-48); HEMOGLOBIN 14.5 g/dL (12.0-16.0); LYMPHOCYTES # (AUTO) 2.2 K/uL (1.0-5.5); LYMPHOCYTES % (AUTO) 33.7 % (20.5-51.5); MEAN CORPUSCULAR HEMOGLOBIN 31 pg (27-31); MEAN CORPUSCULAR HGB CONC 33 % (32-36); MEAN CORPUSCULAR VOLUME 92 fL (79.0-98.0); MONOCYTES # (AUTO) 0.5 K/uL (0.0-1.0); MONOCYTES % (AUTO) 8.2 % (1.7-9.3); NEUTROPHILS # (AUTO) 3.6 K/uL (1.8-7.7); NEUTROPHILS % (AUTO) 55.4 % (40.0-70.0); PLATELET COUNT (AUTO) 203 K/uL (130-430); RED BLOOD CELL COUNT(AUTO) 4.74 MIL/uL (4.2-6.2); RED CELL DISTRIBUTION WIDTH 14.9 % (9.0-15.0); WHITE BLOOD COUNT (AUTO) 6.5 K/uL (4.8-10.8)
[2020-09-30 09:05] LABS: ALBUMIN 3.7 g/dL (3.4-4.8); CALCIUM 8.8 mg/dL (8.4-11.0); CREATININE 0.67 mg/dL (0.55-1.30); FREE T4 (FREE THYROXINE) 0.7 ng/dL (0.6-1.6); POTASSIUM 4.8 mmol/L (3.5-5.1); THYROID STIMULATING HORMONE 1.8 uIu/mL (0.34-4.82); TOTAL BILIRUBIN 0.3 mg/dL (0.0-1.0)
== END 2020-09-30 19:54 | disposition home or self-care (01) ==
LOC: SLB 07:15
DX: E11.9 Type 2 diabetes mellitus without complications (principal); E78.2 Mixed hyperlipidemia; I11.9 Hypertensive heart disease without heart failure; I48.0 Paroxysmal atrial fibrillation; E66.09 Other obesity due to excess calories; E53.8 Deficiency of other specified B group vitamins; E55.0 Rickets, active
CPT/HCPCS: 36415; 80053; 80061; 82306; 82570-TC; 84439; 84443-TC; 85025

== ENCOUNTER 2021-05-26 07:44 | Outpatient (CLI) | payer OTHER ==
[~2021-05-26 07:44] MED LIST changes: +LISI10TA29 PO; -LISI10TA5 PO
[2021-05-26 08:23] LABS: BASOPHILS % (AUTO) 0.7 % (0.0-2.0); EOSINOPHILS # (AUTO) 0.2 K/uL (0.0-0.4); EOSINOPHILS % (AUTO) 2.4 % (0.0-4.0); HEMATOCRIT 43.8 % (36-48); HEMOGLOBIN 14.6 g/dL (12.0-16.0); LYMPHOCYTES # (AUTO) 2.5 K/uL (1.0-5.5); LYMPHOCYTES % (AUTO) 38.4 % (20.5-51.5); MEAN CORPUSCULAR HEMOGLOBIN 31 pg (27-31); MEAN CORPUSCULAR HGB CONC 33 % (32-36); MEAN CORPUSCULAR VOLUME 94 fL (79.0-98.0); MONOCYTES # (AUTO) 0.6 K/uL (0.0-1.0); MONOCYTES % (AUTO) 9.6 % (1.7-9.3); NEUTROPHILS # (AUTO) 3.2 K/uL (1.8-7.7); NEUTROPHILS % (AUTO) 48.9 % (40.0-70.0); PLATELET COUNT (AUTO) 190 K/uL (130-430); RED BLOOD CELL COUNT(AUTO) 4.65 MIL/uL (4.2-6.2); RED CELL DISTRIBUTION WIDTH 14.6 % (9.0-15.0); WHITE BLOOD COUNT (AUTO) 6.6 K/uL (4.8-10.8)
[2021-05-26 08:48] LABS: ALBUMIN 3.6 g/dL (3.4-4.8); CREATININE 0.6 mg/dL (0.55-1.30); POTASSIUM 4.3 mmol/L (3.5-5.1); TOTAL BILIRUBIN 0.3 mg/dL (0.0-1.0)
[2021-05-29 11:54] LABS: HEMOGLOBIN A1C 6.6 % (4.8-5.6)
== END 2021-05-26 17:31 | disposition home or self-care (01) ==
LOC: SLB 07:44
PROVIDERS: ATTEND Specialist
DX: E11.9 Type 2 diabetes mellitus without complications (principal); I10 Essential (primary) hypertension; E78.2 Mixed hyperlipidemia; E66.09 Other obesity due to excess calories; E53.8 Deficiency of other specified B group vitamins; E55.9 Vitamin D deficiency, unspecified
CPT/HCPCS: 36415; 80053; 80061; 82043; 82306; 82570; 82607; 83036; 85025

== ENCOUNTER 2021-08-29 06:38 | Outpatient (CLI) | payer OTHER ==
[2021-08-29 07:09] LABS: BASOPHILS % (AUTO) 0.8 % (0.0-2.0); EOSINOPHILS # (AUTO) 0.1 K/uL (0.0-0.4); EOSINOPHILS % (AUTO) 2.3 % (0.0-4.0); HEMATOCRIT 42.9 % (36-48); HEMOGLOBIN 14.5 g/dL (12.0-16.0); LYMPHOCYTES # (AUTO) 1.8 K/uL (1.0-5.5); LYMPHOCYTES % (AUTO) 30.1 % (20.5-51.5); MEAN CORPUSCULAR HEMOGLOBIN 31 pg (27-31); MEAN CORPUSCULAR HGB CONC 34 % (32-36); MEAN CORPUSCULAR VOLUME 93 fL (79.0-98.0); MONOCYTES # (AUTO) 0.6 K/uL (0.0-1.0); MONOCYTES % (AUTO) 9.2 % (1.7-9.3); NEUTROPHILS # (AUTO) 3.5 K/uL (1.8-7.7); NEUTROPHILS % (AUTO) 57.6 % (40.0-70.0); PLATELET COUNT (AUTO) 208 K/uL (130-430); RED BLOOD CELL COUNT(AUTO) 4.63 MIL/uL (4.2-6.2); RED CELL DISTRIBUTION WIDTH 14.2 % (9.0-15.0)
[2021-08-29 08:26] LABS: ALBUMIN 3.8 g/dL (3.4-4.8); CALCIUM 8.9 mg/dL (8.4-11.0); CREATININE 0.7 mg/dL (0.55-1.30); POTASSIUM 3.8 mmol/L (3.5-5.1); THYROID STIMULATING HORMONE 2.41 uIu/mL (0.36-3.74); TOTAL BILIRUBIN 0.3 mg/dL (0.0-1.0)
[2021-08-29 10:02] LABS: BILIRUBIN,URINE NEGATIVE (NEGATIVE); BLOOD, URINE NEGATIVE (NEGATIVE); COLOR,URINE YELLOW (YELLOW); GLUCOSE,URINE 3+ (NEGATIVE); KETONES,URINE NEGATIVE (NEGATIVE); LEUKOCYTE ESTERASE ,URINE TRACE (NEGATIVE); NITRITE, URINE NEGATIVE (NEGATIVE); PH,URINE 5.5 (5.0-8.0); PROTEIN URINE NEGATIVE (NEGATIVE); UROBILINOGEN,URINE 0.2 (0.2-1.0)
[2021-08-29 10:22] LABS: CLARITY/URINE SLIGHTLY HAZY (CLEAR)
[2021-08-29 10:39] LABS: BACTERIA,URINE FEW /HPF (None Seen); RBC,URINE NONE SEEN /HPF (0-3); WBC,URINE 0-3 /HPF (0-3)
== END 2021-08-29 19:09 | disposition home or self-care (01) ==
LOC: SLB 06:38
PROVIDERS: ATTEND Internal Medicine
DX: E11.65 Type 2 diabetes mellitus with hyperglycemia (principal); I48.0 Paroxysmal atrial fibrillation; I10 Essential (primary) hypertension; E78.5 Hyperlipidemia, unspecified
CPT/HCPCS: 36415; 80053; 80061; 81000; 83036; 84443; 85025; 87086

== ENCOUNTER 2021-12-08 06:19 | Outpatient (CLI) | payer OTHER ==
[2021-12-08 08:03] LABS: BASOPHILS % (AUTO) 0.8 % (0.0-2.0); EOSINOPHILS # (AUTO) 0.1 K/uL (0.0-0.4); EOSINOPHILS % (AUTO) 2.1 % (0.0-4.0); HEMATOCRIT 45.2 % (36-48); HEMOGLOBIN 14.8 g/dL (12.0-16.0); LYMPHOCYTES # (AUTO) 2.1 K/uL (1.0-5.5); LYMPHOCYTES % (AUTO) 34.7 % (20.5-51.5); MEAN CORPUSCULAR HEMOGLOBIN 30 pg (27-31); MEAN CORPUSCULAR HGB CONC 33 % (32-36); MEAN CORPUSCULAR VOLUME 92 fL (79.0-98.0); MONOCYTES # (AUTO) 0.6 K/uL (0.0-1.0); MONOCYTES % (AUTO) 10.6 % (1.7-9.3); NEUTROPHILS # (AUTO) 3.1 K/uL (1.8-7.7); NEUTROPHILS % (AUTO) 51.8 % (40.0-70.0); PLATELET COUNT (AUTO) 218 K/uL (130-430); RED BLOOD CELL COUNT(AUTO) 4.93 MIL/uL (4.2-6.2); RED CELL DISTRIBUTION WIDTH 14.1 % (9.0-15.0); WHITE BLOOD COUNT (AUTO) 5.9 K/uL (4.8-10.8)
[2021-12-08 09:27] LABS: CALCIUM 9.6 mg/dL (8.4-11.0); CREATININE 0.57 mg/dL (0.55-1.30); POTASSIUM 4.5 mmol/L (3.5-5.1); THYROID STIMULATING HORMONE 2.3 uIu/mL (0.36-3.74); TOTAL BILIRUBIN 0.2 mg/dL (0.0-1.0)
== END 2021-12-08 20:45 | disposition home or self-care (01) ==
LOC: SLB 06:19
PROVIDERS: ATTEND Internal Medicine
DX: Z12.31 Encounter for screening mammogram for malignant neoplasm of breast (principal); E11.65 Type 2 diabetes mellitus with hyperglycemia; N63.10 Unspecified lump in the right breast, unspecified quadrant; I10 Essential (primary) hypertension; I48.0 Paroxysmal atrial fibrillation; I31.3 Pericardial effusion (noninflammatory); E78.5 Hyperlipidemia, unspecified; E56.9 Vitamin deficiency, unspecified
CPT/HCPCS: 36415; 77067; 80053; 80061; 82306; 82607; 83036; 84443; 85025

== ENCOUNTER 2022-04-06 06:52 | Outpatient (CLI) | payer OTHER ==
[2022-04-06 07:58] LABS: BASOPHILS % (AUTO) 0.7 % (0.0-2.0); EOSINOPHILS # (AUTO) 0.1 K/uL (0.0-0.4); EOSINOPHILS % (AUTO) 1.6 % (0.0-4.0); HEMATOCRIT 43.6 % (36-48); HEMOGLOBIN 14.6 g/dL (12.0-16.0); LYMPHOCYTES # (AUTO) 2.3 K/uL (1.0-5.5); LYMPHOCYTES % (AUTO) 33.1 % (20.5-51.5); MEAN CORPUSCULAR HEMOGLOBIN 31 pg (27-31); MEAN CORPUSCULAR HGB CONC 34 % (32-36); MEAN CORPUSCULAR VOLUME 91 fL (79.0-98.0); MONOCYTES # (AUTO) 0.7 K/uL (0.0-1.0); MONOCYTES % (AUTO) 9.9 % (1.7-9.3); NEUTROPHILS # (AUTO) 3.8 K/uL (1.8-7.7); NEUTROPHILS % (AUTO) 54.7 % (40.0-70.0); PLATELET COUNT (AUTO) 198 K/uL (130-430); RED BLOOD CELL COUNT(AUTO) 4.78 MIL/uL (4.2-6.2); RED CELL DISTRIBUTION WIDTH 14.8 % (9.0-15.0); WHITE BLOOD COUNT (AUTO) 6.9 K/uL (4.8-10.8)
[2022-04-06 08:09] LABS: ALBUMIN 3.6 g/dL (3.4-4.8); CALCIUM 9.7 mg/dL (8.4-11.0); CREATININE 0.81 mg/dL (0.55-1.30); POTASSIUM 4.3 mmol/L (3.5-5.1); THYROID STIMULATING HORMONE 2.58 uIu/mL (0.36-3.74); TOTAL BILIRUBIN 0.3 mg/dL (0.0-1.0)
== END 2022-04-06 20:57 | disposition home or self-care (01) ==
LOC: SLB 06:52
PROVIDERS: ATTEND Internal Medicine
DX: E11.65 Type 2 diabetes mellitus with hyperglycemia (principal); E78.5 Hyperlipidemia, unspecified; E56.9 Vitamin deficiency, unspecified; E03.9 Hypothyroidism, unspecified
CPT/HCPCS: 36415; 80053; 80061; 82306; 82607; 83036; 84443; 85025

== ENCOUNTER → 2022-06-14 | Outpatient (CLI) | payer OTHER ==
[2022-06-14 16:20] LABS: BILIRUBIN,URINE NEGATIVE (NEGATIVE); BLOOD, URINE 3+ (NEGATIVE); CLARITY/URINE CLOUDY (CLEAR); COLOR,URINE YELLOW (YELLOW); GLUCOSE,URINE 3+ (NEGATIVE); KETONES,URINE 1+ (NEGATIVE); LEUKOCYTE ESTERASE ,URINE 1+ (NEGATIVE); NITRITE, URINE NEGATIVE (NEGATIVE); PROTEIN URINE 2+ (NEGATIVE)
[2022-06-14 16:43] LABS: RBC,URINE 20-50 /HPF (0-3)
[2022-06-14 16:44] LABS: BACTERIA,URINE MANY /HPF (None Seen); WBC,URINE 20-50 /HPF (0-3)
== END | disposition home or self-care (01) ==
LOC: SLB 15:12
PROVIDERS: ATTEND Internal Medicine
DX: N39.0 Urinary tract infection, site not specified (principal)
CPT/HCPCS: 81000; 87086

== ENCOUNTER 2022-08-22 06:24 | Outpatient (CLI) | payer OTHER ==
[2022-08-22 07:36] LABS: BASOPHILS % (AUTO) 0.8 % (0.0-2.0); EOSINOPHILS # (AUTO) 0.1 K/uL (0.0-0.4); EOSINOPHILS % (AUTO) 1.8 % (0.0-4.0); HEMATOCRIT 41.1 % (36-48); HEMOGLOBIN 13.8 g/dL (12.0-16.0); LYMPHOCYTES # (AUTO) 1.9 K/uL (1.0-5.5); LYMPHOCYTES % (AUTO) 31.4 % (20.5-51.5); MEAN CORPUSCULAR HEMOGLOBIN 31 pg (27-31); MEAN CORPUSCULAR HGB CONC 34 % (32-36); MEAN CORPUSCULAR VOLUME 91 fL (79.0-98.0); MONOCYTES # (AUTO) 0.5 K/uL (0.0-1.0); MONOCYTES % (AUTO) 8.6 % (1.7-9.3); NEUTROPHILS # (AUTO) 3.4 K/uL (1.8-7.7); NEUTROPHILS % (AUTO) 57.4 % (40.0-70.0); PLATELET COUNT (AUTO) 210 K/uL (130-430); RED BLOOD CELL COUNT(AUTO) 4.52 MIL/uL (4.2-6.2); RED CELL DISTRIBUTION WIDTH 15.3 % (9.0-15.0)
[2022-08-22 07:39] LABS: BILIRUBIN,URINE NEGATIVE (NEGATIVE); BLOOD, URINE NEGATIVE (NEGATIVE); CLARITY/URINE CLEAR (CLEAR); COLOR,URINE YELLOW (YELLOW); GLUCOSE,URINE 3+ (NEGATIVE); KETONES,URINE NEGATIVE (NEGATIVE); LEUKOCYTE ESTERASE ,URINE TRACE (NEGATIVE); NITRITE, URINE NEGATIVE (NEGATIVE); PROTEIN URINE NEGATIVE (NEGATIVE); UROBILINOGEN,URINE 0.2 (0.2-1.0)
[2022-08-22 08:07] LABS: ALBUMIN 3.8 g/dL (3.4-4.8); CALCIUM 8.4 mg/dL (8.4-11.0); CREATININE 0.66 mg/dL (0.55-1.30); THYROID STIMULATING HORMONE 2.77 uIu/mL (0.34-4.82); TOTAL BILIRUBIN 0.2 mg/dL (0.0-1.0)
[2022-08-22 08:33] LABS: BACTERIA,URINE None Seen /HPF (None Seen); RBC,URINE 0-3 /HPF (0-3)
[2022-08-22 08:34] LABS: MUCUS,URINE None Seen /LPF (None Seen)
== END 2022-08-22 20:23 | disposition home or self-care (01) ==
LOC: SLB 06:24
PROVIDERS: ATTEND Internal Medicine
DX: E11.65 Type 2 diabetes mellitus with hyperglycemia (principal); E55.9 Vitamin D deficiency, unspecified; E78.5 Hyperlipidemia, unspecified; I48.0 Paroxysmal atrial fibrillation; E56.9 Vitamin deficiency, unspecified
CPT/HCPCS: 36415; 80053; 80061; 81000; 82306; 82607; 83036; 83735; 84443; 85025; 87086

== ENCOUNTER 2023-02-11 18:18 | Emergency (ER) | payer OTHER ==
[~2023-02-11] VITALS: Ht 162.6 cm; Wt 81.6 kg
[2023-02-11 18:45] VITALS: BP_SYST 152
--- NOTE | 2023-02-11 19:14 | NUR ---
[place] grewal in EDM - 02/11/23 at 1924 by BARURAL PT BIB SELF FROM HOME, AMBULATED TO HALLWAY BED 1. PT A&Ox4, ABLE TO MAKE NEEDS KNOWN. PT C/O RIGHT SHOULDER PAIN THAT RADIATES TO NECK AND DOWNB
--- NOTE | 2023-02-11 19:14 | NUR ---
PT BIB SELF FROM HOME, AMBULATED TO HALLWAY BED 1. PT A&Ox4, ABLE TO MAKE NEEDS KNOWN. PT C/O RIGHT SHOULDER PAIN THAT RADIATES TO NECK AND DOWN RIGHT ARM DUE TO A FALL AT WORK THIS MORNING. PT STATES SHE FELL ON KNEES AND LAID OUT. PT DENIES LOSING CONCIOUSNESS. PT STATES SHE FEELS NAUSEATED. PT DENIES V/D, FEVER AND CHILLS. PT DENIES SOB AND CHEST PAIN. PT STATES SHE TOOK MOTRIN 400MG AT 1300. PT RATES PAIN 06/02. SAFETY MEASURES IN PLACE.
--- NOTE | 2023-02-11 19:27 | NUR ---
Dr. HILL is at bedside examining the patient.
[2023-02-11] MEDS ORDERED: HYDROcodone/ACETAMIN 10-325 MG TAB PO ONE (19:30)
[2023-02-11] MEDS ORDERED: IBUPROFEN 800 MG TABLET PO ONE (19:30)
[2023-02-11] MEDS ORDERED: TRAM50TA2 PO (20:21)
[2023-02-11] MEDS ORDERED: IBUP-1969 PO (20:21)
[2023-02-11] MEDS ORDERED: MORPHINE 4 MG INJ. 4 MG/ML VIAL IM ONE (20:30)
--- NOTE | 2023-02-11 21:11 | NUR ---
Patient given written and verbal discharge instructions and verbalizes understanding. ER DR HILL discussed with patient the results and treatment provided. Patient in stable condition. ID arm band removed. Rx of MOTRIN AND ULTRAM given. Patient educated on pain management and to follow up with PMD. Pain Scale 3/10. Opportunity for questions provided and answered. Medication side effect fact sheet provided.
== END 2023-02-11 21:10 | disposition home or self-care (01) ==
LOC: SED 18:18
DX: S43.401A Unspecified sprain of right shoulder joint, initial encounter (principal); J45.909 Unspecified asthma, uncomplicated; I11.0 Hypertensive heart disease with heart failure; I50.9 Heart failure, unspecified; E11.9 Type 2 diabetes mellitus without complications; Z79.899 Other long term (current) drug therapy; W19.XXXA Unspecified fall, initial encounter; Y93.89 Activity, other specified; Y92.89 Other specified places as the place of occurrence of the external cause; Y99.8 Other external cause status
CPT/HCPCS: 99283; 73030; 96372; J2270

== ENCOUNTER 2023-06-06 10:30 | Outpatient (CLI) | payer OTHER ==
[~2023-06-06 10:30] MED LIST changes: +IBUP-1969 PO; +TRAM50TA2 PO
[2023-06-06 10:33] LABS: BASOPHILS % (AUTO) 0.4 % (0.0-2.0); EOSINOPHILS # (AUTO) 0.2 K/uL (0.0-0.4); EOSINOPHILS % (AUTO) 2.4 % (0.0-4.0); HEMATOCRIT 46.1 % (36-48); HEMOGLOBIN 15.1 g/dL (12.0-16.0); LYMPHOCYTES # (AUTO) 2.5 K/uL (1.0-5.5); LYMPHOCYTES % (AUTO) 35.1 % (20.5-51.5); MEAN CORPUSCULAR HEMOGLOBIN 31 pg (27-31); MEAN CORPUSCULAR HGB CONC 33 % (32-36); MEAN CORPUSCULAR VOLUME 94 fL (79.0-98.0); MONOCYTES # (AUTO) 0.7 K/uL (0.0-1.0); MONOCYTES % (AUTO) 9.3 % (1.7-9.3); NEUTROPHILS # (AUTO) 3.7 K/uL (1.8-7.7); NEUTROPHILS % (AUTO) 52.8 % (40.0-70.0); PLATELET COUNT (AUTO) 234 K/uL (130-430); RED BLOOD CELL COUNT(AUTO) 4.92 MIL/uL (4.2-6.2); RED CELL DISTRIBUTION WIDTH 14.7 % (9.0-15.0); WHITE BLOOD COUNT (AUTO) 7.1 K/uL (4.8-10.8)
[2023-06-06 11:06] LABS: HEMOGLOBIN A1C 6.65 % (<5.7)
[2023-06-06 11:12] LABS: ALBUMIN 3.9 g/dL (3.4-4.8); CREATININE 0.63 mg/dL (0.55-1.30); POTASSIUM 4.2 mmol/L (3.5-5.1); THYROID STIMULATING HORMONE 2.51 uIu/mL (0.34-4.82); TOTAL BILIRUBIN 0.3 mg/dL (0.0-1.0); TOTAL PROTEIN, SERUM 7.4 g/dL (6.4-8.3)
[2023-06-06 11:15] LABS: BILIRUBIN,URINE NEGATIVE (NEGATIVE); CLARITY/URINE Clear (CLEAR); COLOR,URINE YELLOW (YELLOW); GLUCOSE,URINE 3+ (NEGATIVE); LEUKOCYTE ESTERASE ,URINE NEGATIVE (NEGATIVE); NITRITE, URINE NEGATIVE (NEGATIVE); PROTEIN URINE NEGATIVE (NEGATIVE); UROBILINOGEN,URINE 0.2 (0.2-1.0)
[2023-06-06 11:54] LABS: BLOOD, URINE TRACE (NEGATIVE); KETONES,URINE TRACE (NEGATIVE)
[2023-06-06 11:56] LABS: BACTERIA,URINE RARE /HPF (None Seen); WBC,URINE 0-3 /HPF (0-3)
== END 2023-06-06 18:00 | disposition home or self-care (01) ==
LOC: SLB 10:30
PROVIDERS: ATTEND Internal Medicine
DX: E11.65 Type 2 diabetes mellitus with hyperglycemia (principal); E78.5 Hyperlipidemia, unspecified; N30.00 Acute cystitis without hematuria
CPT/HCPCS: 36415; 80053; 80061; 81000; 83037; 84443; 85025; 87086

== ENCOUNTER 2023-10-18 10:58 | Outpatient (CLI) | payer OTHER ==
[2023-10-18 09:49] LABS: BASOPHILS % (AUTO) 0.7 % (0.0-2.0); EOSINOPHILS # (AUTO) 0.1 K/uL (0.0-0.4); EOSINOPHILS % (AUTO) 1.5 % (0.0-4.0); HEMATOCRIT 41.9 % (36-48); HEMOGLOBIN 14.3 g/dL (12.0-16.0); LYMPHOCYTES # (AUTO) 1.9 K/uL (1.0-5.5); LYMPHOCYTES % (AUTO) 30.8 % (20.5-51.5); MEAN CORPUSCULAR HEMOGLOBIN 31 pg (27-31); MEAN CORPUSCULAR HGB CONC 34 % (32-36); MEAN CORPUSCULAR VOLUME 92 fL (79.0-98.0); MONOCYTES # (AUTO) 0.6 K/uL (0.0-1.0); MONOCYTES % (AUTO) 9.7 % (1.7-9.3); NEUTROPHILS # (AUTO) 3.6 K/uL (1.8-7.7); NEUTROPHILS % (AUTO) 57.3 % (40.0-70.0); PLATELET COUNT (AUTO) 221 K/uL (130-430); RED BLOOD CELL COUNT(AUTO) 4.56 MIL/uL (4.2-6.2); RED CELL DISTRIBUTION WIDTH 14.1 % (9.0-15.0); WHITE BLOOD COUNT (AUTO) 6.3 K/uL (4.8-10.8)
[2023-10-18 10:13] LABS: ALBUMIN 3.8 g/dL (3.4-4.8); CALCIUM 9.4 mg/dL (8.4-11.0); CREATININE 0.63 mg/dL (0.55-1.30); POTASSIUM 4.3 mmol/L (3.5-5.1); THYROID STIMULATING HORMONE 2.78 uIu/mL (0.34-4.82); TOTAL BILIRUBIN 0.2 mg/dL (0.0-1.0); TOTAL PROTEIN, SERUM 7.3 g/dL (6.4-8.3)
[2023-10-18 10:28] LABS: HEMOGLOBIN A1C 7.35 % (<5.7)
== END 2023-10-18 18:00 | disposition home or self-care (01) ==
LOC: SLB 10:58
PROVIDERS: ATTEND Internal Medicine
DX: E11.65 Type 2 diabetes mellitus with hyperglycemia (principal); E55.9 Vitamin D deficiency, unspecified; E78.5 Hyperlipidemia, unspecified; E56.9 Vitamin deficiency, unspecified
CPT/HCPCS: 36415; 80053; 80061; 82306; 82607; 83037; 84443; 85025

== ENCOUNTER 2023-12-19 08:55 | Outpatient (CLI) | payer OTHER ==
[2023-12-19 09:38] LABS: BASOPHILS # (AUTO) 0.1 K/uL (0.0-0.2); BASOPHILS % (AUTO) 0.8 % (0.0-2.0); EOSINOPHILS # (AUTO) 1.7 K/uL (0.0-0.4); HEMATOCRIT 42.7 % (36-48); HEMOGLOBIN 14.3 g/dL (12.0-16.0); LYMPHOCYTES % (AUTO) 26.8 % (20.5-51.5); MEAN CORPUSCULAR HEMOGLOBIN 31 pg (27-31); MEAN CORPUSCULAR HGB CONC 34 % (32-36); MEAN CORPUSCULAR VOLUME 92 fL (79.0-98.0); MONOCYTES # (AUTO) 0.5 K/uL (0.0-1.0); MONOCYTES % (AUTO) 6.8 % (1.7-9.3); NEUTROPHILS # (AUTO) 3.1 K/uL (1.8-7.7); PLATELET COUNT (AUTO) 240 K/uL (130-430); RED BLOOD CELL COUNT(AUTO) 4.63 MIL/uL (4.2-6.2); WHITE BLOOD COUNT (AUTO) 7.3 K/uL (4.8-10.8)
[2023-12-19 09:55] LABS: ALBUMIN 3.6 g/dL (3.4-4.8); CALCIUM 8.7 mg/dL (8.4-11.0); CREATININE 0.65 mg/dL (0.55-1.30); THYROID STIMULATING HORMONE 3.37 uIu/mL (0.34-4.82); TOTAL BILIRUBIN 0.3 mg/dL (0.0-1.0); TOTAL PROTEIN, SERUM 7.1 g/dL (6.4-8.3)
[2023-12-19 10:02] LABS: HEMOGLOBIN A1C 6.39 % (<5.7)
[2023-12-19 13:55] LABS: NEUTROPHILS % (AUTO) 42.6 % (40.0-70.0)
== END 2023-12-19 20:43 | disposition home or self-care (01) ==
LOC: SMA 08:55
PROVIDERS: ATTEND Internal Medicine
DX: Z12.31 Encounter for screening mammogram for malignant neoplasm of breast (principal); E11.65 Type 2 diabetes mellitus with hyperglycemia; E78.5 Hyperlipidemia, unspecified; E03.9 Hypothyroidism, unspecified; I10 Essential (primary) hypertension; G44.52 New daily persistent headache (NDPH)
CPT/HCPCS: 36415; 70551; 77067; 80053; 80061; 83037; 84443; 85025

== ENCOUNTER 2023-12-31 07:37 | Day surgery (SDC) | payer OTHER ==
[~2023-12-31] VITALS: Ht 162.6 cm; Wt 75.3 kg
[2023-12-31] MEDS ORDERED: fentaNYL CITRATE/PF 100 MCG/2 ML AMP ONE (09:02)
[2023-12-31] MEDS ORDERED: MIDAZOLAM HCL 5 MG/5 ML VIAL ONE (09:02)
[2023-12-31 15:18] VITALS: O2SAT 97
[2023-12-31 15:56] VITALS: BP_SYST 107; PULSE 80; RESP 16
== END 2023-12-31 10:25 | disposition home or self-care (01) ==
LOC: SDS 07:37 → SMU 07:38 → SDS 10:25
PROVIDERS: ATTEND Internal Medicine
DX: Z12.11 Encounter for screening for malignant neoplasm of colon (principal); D12.4 Benign neoplasm of descending colon; K57.30 Diverticulosis of large intestine without perforation or abscess without bleeding; K64.8 Other hemorrhoids; K21.9 Gastro-esophageal reflux disease without esophagitis; E11.9 Type 2 diabetes mellitus without complications; J45.909 Unspecified asthma, uncomplicated; M19.90 Unspecified osteoarthritis, unspecified site; E78.00 Pure hypercholesterolemia, unspecified; Z98.891 History of uterine scar from previous surgery; Z98.890 Other specified postprocedural states; Z79.84 Long term (current) use of oral hypoglycemic drugs; Z79.899 Other long term (current) drug therapy; Z80.0 Family history of malignant neoplasm of digestive organs
CPT/HCPCS: 45385; 99152; 82948; 88305; G0378; J2250; J3010

== ENCOUNTER 2024-01-17 12:42 | Outpatient (CLI) | payer OTHER ==
[2024-01-17 13:09] LABS: BASOPHILS # (AUTO) 0.1 K/uL (0.0-0.2); BASOPHILS % (AUTO) 0.8 % (0.0-2.0); EOSINOPHILS # (AUTO) 0.2 K/uL (0.0-0.4); EOSINOPHILS % (AUTO) 2.1 % (0.0-4.0); HEMATOCRIT 43.6 % (36-48); HEMOGLOBIN 14.9 g/dL (12.0-16.0); LYMPHOCYTES # (AUTO) 3.7 K/uL (1.0-5.5); LYMPHOCYTES % (AUTO) 38.2 % (20.5-51.5); MEAN CORPUSCULAR HEMOGLOBIN 31 pg (27-31); MEAN CORPUSCULAR HGB CONC 34 % (32-36); MEAN CORPUSCULAR VOLUME 91 fL (79.0-98.0); MONOCYTES # (AUTO) 0.9 K/uL (0.0-1.0); MONOCYTES % (AUTO) 9.6 % (1.7-9.3); NEUTROPHILS # (AUTO) 4.7 K/uL (1.8-7.7); NEUTROPHILS % (AUTO) 49.3 % (40.0-70.0); PLATELET COUNT (AUTO) 242 K/uL (130-430); RED BLOOD CELL COUNT(AUTO) 4.78 MIL/uL (4.2-6.2); RED CELL DISTRIBUTION WIDTH 13.8 % (9.0-15.0); WHITE BLOOD COUNT (AUTO) 9.6 K/uL (4.8-10.8)
[2024-01-17 13:27] LABS: ALBUMIN 4.2 g/dL (3.4-4.8); CREATININE 0.72 mg/dL (0.55-1.30); POTASSIUM 4.1 mmol/L (3.5-5.1); TOTAL BILIRUBIN 0.3 mg/dL (0.0-1.0)
== END 2024-01-17 18:05 | disposition home or self-care (01) ==
LOC: SLB 12:42
PROVIDERS: ATTEND Internal Medicine
DX: R10.10 Upper abdominal pain, unspecified (principal)
CPT/HCPCS: 36415; 80053; 83690; 85025

== ENCOUNTER 2024-05-05 09:23 | Outpatient (CLI) | payer OTHER ==
[2024-05-05 10:46] LABS: BASOPHILS % (AUTO) 0.7 % (0.0-2.0); EOSINOPHILS # (AUTO) 0.1 K/uL (0.0-0.4); EOSINOPHILS % (AUTO) 1.5 % (0.0-4.0); HEMATOCRIT 42.5 % (36-48); LYMPHOCYTES # (AUTO) 2.5 K/uL (1.0-5.5); LYMPHOCYTES % (AUTO) 40.5 % (20.5-51.5); MEAN CORPUSCULAR HEMOGLOBIN 31 pg (27-31); MEAN CORPUSCULAR HGB CONC 33 % (32-36); MEAN CORPUSCULAR VOLUME 93 fL (79.0-98.0); MONOCYTES # (AUTO) 0.5 K/uL (0.0-1.0); MONOCYTES % (AUTO) 8.6 % (1.7-9.3); NEUTROPHILS % (AUTO) 48.7 % (40.0-70.0); PLATELET COUNT (AUTO) 208 K/uL (130-430); RED BLOOD CELL COUNT(AUTO) 4.59 MIL/uL (4.2-6.2); RED CELL DISTRIBUTION WIDTH 14.8 % (9.0-15.0); WHITE BLOOD COUNT (AUTO) 6.2 K/uL (4.8-10.8)
[2024-05-05 11:40] LABS: ALBUMIN 3.9 g/dL (3.4-4.8); CREATININE 0.66 mg/dL (0.55-1.30); THYROID STIMULATING HORMONE 2.62 uIu/mL (0.34-4.82); TOTAL BILIRUBIN 0.3 mg/dL (0.0-1.0); TOTAL PROTEIN, SERUM 7.4 g/dL (6.4-8.3)
== END 2024-05-05 20:56 | disposition home or self-care (01) ==
LOC: SLB 09:23
PROVIDERS: ATTEND Internal Medicine
DX: E11.65 Type 2 diabetes mellitus with hyperglycemia (principal); E78.5 Hyperlipidemia, unspecified; E03.9 Hypothyroidism, unspecified; E55.9 Vitamin D deficiency, unspecified; E56.9 Vitamin deficiency, unspecified
CPT/HCPCS: 36415; 80053; 80061; 83037; 84443; 85025